=== PATIENT | female | born 1990 | race Caucasian/White ===

== ENCOUNTER 2016-08-18 18:27 | Emergency (ER) | payer MEDICAID ==
--- NOTE | 2016-08-18 19:01 | EDM.PDOC ---
ED HPI Behavioral Health - General Chief Complaint: Behavioral/Psych Stated Complaint: MEDICAL [facility] Time Seen by Provider: 08/18/16 18:49 Source: Reports: Patient, RN notes reviewed Exam Limitations: Reports: No limitations - History of Present Illness INITIAL COMMENTS - FREE TEXT/NARRATIVE: 26-year-old female presents emergency department today via EMS services for suicidal attempt with a drug he is taking 2 additional tablets of 25 mg of Toprol approximately 45 minutes ago. She has been displaying some cutting behavior on her left wrist admits that she wants to harm herself and would continue to do with overdose of medication - Related Data Allergies Allergy/AdvReac Type Severity Reaction Status Date / Time cat dander Allergy Anaphylactic Verified 08/18/16 18:37 Shock cyclobenzaprine HCl AdvReac Intermediate Nausea Verified 08/18/16 18:37 [From Flexeril] red dye AdvReac Intermediate Vomiting Verified 08/18/16 18:37 Home Medications: Home Meds Metoprolol Succinate [Toprol XL] 25 mg PO BID 06/03/15 [History] LORazepam 0.5 mg PO BID 08/31/15 [History] Albuterol [Ventolin HFA] 2 inh PO ASDIRECTED 03/14/16 [History] Mirtazapine [Mirtazapine] 22.5 mg PO DAILY 03/14/16 [History] lamoTRIgine [Lamotrigine] 50 mg PO BEDTIME 03/14/16 [History] Back Pain Score (Numeric/FACES): 8 Past Medical History Cardiovascular History: Reports: Arrhythmia Other Cardiovascular History: hr 280 bpm- cardioverted previously Respiratory History: Reports: Pneumonia, recurrent Genitourinary History: Reports: UTI, recurrent 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 febrile seizure as child Psychiatric History: Reports: Bipolar, Depression, Hallucinations, Panic attack , Psych Hospitalization(s), PTSD, Suicidal ideation (Last hospitalization one year ago), Other (see below) Other Psychiatric History: borderline personality disorder Endocrine/Metabolic History: Reports: Obesity/BMI 30+ Hematologic History: Reports: Anemia, B12 deficiency, Blood transfusion(s) Immunologic History: Reports: Other (see below) Other Immunologic History: prednisone injections Dermatologic History: Reports: Psoriasis - Infectious Disease History Infectious Disease History: Reports: Chicken pox - Past Surgical History HEENT Surgical History: Reports: Myringotomy w tube(s), Oral surgery Cardiovascular Surgical History: Reports: Vascular surgery Other Cardiovascular Surgeries/Procedures: sent to [facility] for cardiogram early this year unsure what did GI Surgical History: Reports: Cholecystectomy Other Female Surgeries/Procedures: ovary surgery Other Musculoskeletal Surgeries/Procedures:: prednisone epidural injections Social & Family History - Family History Family Medical History: Noncontributory Cardiac: Reports: High cholesterol, Hypertension Other GI Family History: Osmani suffers from microscopic colitis OBGYN: Reports: Dysfunctional uterine bleeding, Endometriosis Endocrine/Metabolic: Reports: Diabetes, type II Oncologic: Reports: Esophageal - Tobacco Use Smoking Status *Q: Current Every Day Smoker Years of Tobacco use: 18 Packs/Tins Daily: 0.5 Used Tobacco, but Quit: No Month Tobacco Last Used: 2 Second Hand Smoke Exposure: Yes - Caffeine Use Caffeine Use: Reports: Soda - Alcohol Use Days Per Week of Alcohol Use: 1 Number of Drinks Per Day: 3 Total Drinks Per Week: 3 - Recreational Drug Use Recreational Drug Use: Yes Drug Use in Last 12 Months: Yes Recreational Drug Type: Reports: Marijuana/Hashish Recreational Drug Use Frequency: Monthly - Living Situation & Occupation Living situation: Reports: single, with family (Lives in [facility] with her vcj-luuz-hen daughter.) Occupation: disabled ED ROS GENERAL - Review of Systems Review Of Systems: See Below Constitutional: Reports: no symptoms HEENT: Reports: No symptoms Respiratory: Reports: No Symptoms Cardiovascular: Reports: No symptoms GI/Abdominal: Reports: No symptoms : Reports: no symptoms Musculoskeletal: Reports: no symptoms Skin: Reports: no symptoms Neurological: Reports: No Symptoms Psychiatric: Reports: Anxiety, Depression, Suicidal ideation. Denies: Hallucinations, Homicidal ideation ED EXAM, BEHAVIORAL HEALTH - Physical Exam Exam: See Below Text/Narrative:: General: Female, not in any distress, tearful anxious, alert and oriented x3 HEENT: head is atraumatic normocephalic, eyes pupils equal round reactive to light, sclera clear no conjunctivitis appreciated. Ears tympanic membranes clear and marshall landmarks and light reflex are present bilaterally canals are clear. Nose no septal deviation, nares are clear, no blood present. Mouth mucosa is moist and pink no erythema or exudate noted in soft palate, tongue is midline uvula is midline, dentition is intact. Neck: Supple no thyromegaly no tracheal deviation. Nodes: Cervical nodes subclavicular nodes nontender no palpable lymphadenopathy noted. Lungs: clear to auscultation bilaterally with symmetrical respirations, no adventitious noise appreciated. CV: Regular rate and rhythm S1 and S2 appreciated no murmurs rubs or gallops noted. Abdomen: Soft, nontender, no palpable masses or organomegaly appreciated, no distention no guarding bowel sounds are present, . Neuro: Cranial nerves II through XII grossly intact Skin: Warm and dry, intact Extremities: No lower extremity edema appreciated, pedal pulse is +2. Orientated to person place and time, appropriately dressed, well groomed, memory to recent and remote events intact, tearful during the interview, speech is of adequate rate tone and volume, good fund of knowledge, language is appropriate, Mood and affect are depressed, no pressured thoughts, positive for suicidal ideation, denies homicidal ideation, no hallucinations visual or auditory, poor judgment, poor insight COURSE, BEHAVIORAL HEALTH COMP - Course Vital Signs: Last Vital Signs Temp 99.0 F 08/18/16 18:36 Pulse 68 08/18/16 21:21 Resp 18 08/18/16 21:21 BP 124/68 08/18/16 21:21 Pulse Ox 98 08/18/16 21:21 Orders, Labs, Meds: Active Orders 24 hr Category Date Time Status EKG Documentation Completion [RC] ASDIRECTED Care 08/18/16 18:56 Active CULTURE URINE [RM] Urgent Lab 08/18/16 21:45 Uncollected EKG 12 Lead [EK] Urgent Ther 08/18/16 18:55 Ordered Laboratory Tests 08/18/16 08/18/16 08/18/16 Range/Units 19:06 19:06 19:06 WBC 8.1 (4.5-11.0) K/uL RBC 4.76 (3.30-5.50) M/uL Hgb 14.0 (12.0-15.0) g/dL Hct 42.9 (36.0-48.0) % MCV 90 (80-98) fL MCH 29 (27-31) pg MCHC 33 (32-36) % Plt Count 198 (150-400) K/uL Neut % (Auto) 47 (36-66) % Lymph % (Auto) 42 (24-44) % [place]incon % (Auto) 7 H (2-6) % Eos % (Auto) 2 (2-4) % Baso % (Auto) 2 H (0-1) % Sodium 146 (140-148) mmol/L Potassium 4.4 (3.6-5.2) mmol/L Chloride 108 (100-108) mmol/L Carbon Dioxide 29 (21-32) mmol/L Anion Gap 8.8 (5.0-14.0) mmol/L BUN 7 (7-18) mg/dL Creatinine 0.8 (0.6-1.0) mg/dL Est Cr Clr Drug Dosing TNP Estimated GFR (MDRD) > 60 (>60) Glucose 90 (74-106) mg/dL Calcium 8.7 (8.5-10.1) mg/dL Total Bilirubin 0.4 (0.2-1.0) mg/dL AST 33 (15-37) U/L ALT 56 (12-78) U/L Alkaline Phosphatase 88 (46-116) U/L Total Protein 7.3 (6.4-8.2) g/dL Albumin 4.2 (3.4-5.0) g/dL Globulin 3.1 (2.3-3.5) g/dL Albumin/Globulin Ratio 1.4 (1.2-2.2) Urine Color Urine Appearance Urine pH (4.5-8.0) Ur Specific [place] (1.008-1.030) Urine Protein (NEGATIVE) mg/dL Urine Glucose (UA) (NEGATIVE) mg/dL Urine Ketones (NEGATIVE) mg/dL Urine Occult Blood (NEGATIVE) Urine Nitrite (NEGATIVE) Urine Bilirubin (NEGATIVE) Urine Urobilinogen (NORMAL) mg/dL Ur Leukocyte Esterase (NEGATIVE) Urine RBC (0-5) Urine WBC (0-5) Ur Epithelial Cells Amorphous Sediment Urine Bacteria Urine Mucus Urine Other Urine HCG, Qual Urine Opiates Screen (NEGATIVE) Ur Oxycodone Screen (NEGATIVE) Urine Methadone Screen (NEGATIVE) Ur Propoxyphene Screen (NEGATIVE) Ur Barbiturates Screen (NEGATIVE) Ur Tricyclics Screen (NEGATIVE) Ur Phencyclidine Scrn (NEGATIVE) Ur Amphetamine Screen (NEGATIVE) U Methamphetamines Scrn (NEGATIVE) Urine MDMA Screen (NEGATIVE) U Benzodiazepines Scrn (NEGATIVE) U Cocaine Metab Screen (NEGATIVE) U Marijuana (THC) Screen (NEGATIVE) Ethyl Alcohol < 3 mg/dL 08/18/16 08/18/16 08/18/16 Range/Units 19:24 19:24 19:24 WBC (4.5-11.0) K/uL RBC (3.30-5.50) M/uL Hgb (12.0-15.0) g/dL Hct (36.0-48.0) % MCV (80-98) fL MCH (27-31) pg MCHC (32-36) % Plt Count (150-400) K/uL Neut % (Auto) (36-66) % Lymph % (Auto) (24-44) % Rincon % (Auto) (2-6) % Eos % (Auto) (2-4) % Baso % (Auto) (0-1) % Sodium (140-148) mmol/L Potassium (3.6-5.2) mmol/L Chloride (100-108) mmol/L Carbon Dioxide (21-32) mmol/L Anion Gap (5.0-14.0) mmol/L BUN (7-18) mg/dL Creatinine (0.6-1.0) mg/dL Est Cr Clr Drug Dosing Estimated GFR (MDRD) (>60) Glucose (74-106) mg/dL Calcium (8.5-10.1) mg/dL Total Bilirubin (0.2-1.0) mg/dL AST (15-37) U/L ALT (12-78) U/L Alkaline Phosphatase (46-116) U/L Total Protein (6.4-8.2) g/dL Albumin (3.4-5.0) g/dL Globulin (2.3-3.5) g/dL Albumin/Globulin Ratio (1.2-2.2) Urine Color Yellow Urine Appearance Slightly cloudy Urine pH 6.0 (4.5-8.0) Ur Specific [place] 1.025 (1.008-1.030) Urine Protein Negative (NEGATIVE) mg/dL Urine Glucose (UA) Normal (NEGATIVE) mg/dL Urine Ketones Negative (NEGATIVE) mg/dL Urine Occult Blood Negative (NEGATIVE) Urine Nitrite Negative (NEGATIVE) Urine Bilirubin Negative (NEGATIVE) Urine Urobilinogen 1 (NORMAL) mg/dL Ur Leukocyte Esterase Small (NEGATIVE) Urine RBC 0-5 (0-5) Urine WBC 10-20 H (0-5) Ur Epithelial Cells Moderate Amorphous Sediment Not seen Urine Bacteria Many Urine Mucus Few Urine Other Urine HCG, Qual Negative Urine Opiates Screen Negative (NEGATIVE) Ur Oxycodone Screen Negative (NEGATIVE) Urine Methadone Screen Negative (NEGATIVE) Ur Propoxyphene Screen Negative (NEGATIVE) Ur Barbiturates Screen Negative (NEGATIVE) Ur Tricyclics Screen Negative (NEGATIVE) Ur Phencyclidine Scrn Negative (NEGATIVE) Ur Amphetamine Screen Negative (NEGATIVE) U Methamphetamines Scrn Negative (NEGATIVE) Urine MDMA Screen Negative (NEGATIVE) U Benzodiazepines Scrn Negative (NEGATIVE) U Cocaine Metab Screen Negative (NEGATIVE) U Marijuana (THC) Screen Positive H (NEGATIVE) Ethyl Alcohol mg/dL Departure - Departure Time of Disposition: 21:58 Disposition: DC/Tfer to Psych Hosp/Unit 65 Condition: fair Clinical Impression: Suicidal ideation Forms: ED Department Discharge - My Orders Last 24 Hours: My Active Orders 08/18/16 18:55 EKG 12 Lead [EK] Urgent 08/18/16 18:56 EKG Documentation Completion [RC] ASDIRECTED 08/18/16 21:45 CULTURE URINE [RM] Urgent - Assessment/Plan Last 24 Hours: My Active Orders 08/18/16 18:55 EKG 12 Lead [EK] Urgent 08/18/16 18:56 EKG Documentation Completion [RC] ASDIRECTED 08/18/16 21:45 CULTURE URINE [RM] Urgent Plan: Assessment Acuity = acute Site and laterality = suicidal ideation complicated patient with known history of bipolar and previous suicidal attempts Etiology = secondary to social situation with male friend Manifestations = none Location of injury = home Lab values = CBC, CMP unremarkable, urinalysis does have 10-20 WBCs consistent with pyuria however she is asymptomatic at this time cultures pending, urine drug screen positive for cannabis Plan Did have acceptance at [facility] and for response she will be transported via [facility] transport, Patient was in agreement with the plan all questions were answered. This note was dictated using [employer] voice recognition software please call with any questions.
[2016-08-18 23:16] VITALS: BP 121/73
[2016-08-18] MEDS ORDERED: Mirtazapine 15 MG Tab PO ONE (23:34)
[2016-08-18] MEDS ORDERED: lamoTRIgine 25 MG Tab PO ONE (23:35)
[2016-08-18] MEDS ORDERED: lamoTRIgine 100 MG Tab ONE (23:42)
== END 2016-08-19 00:13 ==
LOC: JP.ED 18:27
DX: R45.851 Suicidal ideations (principal); F32.9 Major depressive disorder, single episode, unspecified; F31.9 Bipolar disorder, unspecified; F41.0 Panic disorder [episodic paroxysmal anxiety]; F17.210 Nicotine dependence, cigarettes, uncomplicated; E66.9 Obesity, unspecified; Z68.30 Body mass index [BMI] 30.0-30.9, adult; Z90.49 Acquired absence of other specified parts of digestive tract; Z96.22 Myringotomy tube(s) status; Z98.890 Other specified postprocedural states; Z79.899 Other long term (current) drug therapy; Z88.8 Allergy status to other drugs, medicaments and biological substances; Z91.048 Other nonmedicinal substance allergy status
CPT/HCPCS: 36415; 80053; 80305; 81001; 81025; 85025; 87086; 93005; 99285; A9270; G0480

== ENCOUNTER 2018-07-25 22:38 | Emergency (ER) | payer MEDICAID ==
[2018-07-25 23:01] VITALS: BP 116/71
[2018-07-25] MEDS ORDERED: Ketorolac 60 MG/2 ML SDV IM ONE (23:17)
[2018-07-25] MEDS ORDERED: Baclofen 10 MG Tab PO ONE (23:17)
[2018-07-25] MEDS ORDERED: Acetaminophen/oxyCODONE 325-5 MG Tab PO ONE (23:18)
--- NOTE | 2018-07-25 23:26 | EDM.PDOC ---
ED HPI GENERAL MEDICAL PROBLEM - General Chief Complaint: Back Pain or Injury Stated Complaint: BACK AND LEG PAIN Time Seen by Provider: 07/25/18 23:20 Source of Information: Reports: Patient History Limitations: Reports: No Limitations - History of Present Illness INITIAL COMMENTS - FREE TEXT/NARRATIVE: pt arrived with pain in the left lower lumbar area, She has pain going down the back of the left leg to her toes. This is the worst radicular pain she has had. She reached a point that she could not stand and she could not get in the car tonight. She has not had a fall or recent injury. Onset: Other ( The pain did get alot worse today. ) Duration: Hour(s): Location: Reports: Back, Lower Extremity, Left Associated Symptoms: Reports: Other (pt definitely felt like he had weakness in her left leg. 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: Other (see below) Left Lower Back Pain Score (Numeric/FACES): 10 - Related Data Allergies Allergy/AdvReac Type Severity Reaction Status Date / Time cat dander Allergy Severe Anaphylactic Verified 07/25/18 23:01 Shock cyclobenzaprine HCl AdvReac Intermediate Nausea Verified 07/25/18 23:01 [From Flexeril] red dye AdvReac Intermediate Vomiting Verified 07/25/18 23:01 Home Meds: Home Meds Metoprolol Succinate [Toprol XL] 25 mg PO DAILY 06/03/15 [History] Albuterol [Ventolin HFA] 2 inh PO ASDIRECTED 03/14/16 [History] lamoTRIgine [Lamotrigine] 100 mg PO BEDTIME 03/14/16 [History] Ondansetron [Zofran ODT] 4 mg PO Q6H PRN 03/21/18 [History] Sertraline HCl 150 mg PO BEDTIME 03/21/18 [History] hydrOXYzine HCl [hydrOXYzine] 25 mg PO Q6HR PRN 03/21/18 [History] Cefdinir [Omnicef] 300 mg PO BID #8 cap 03/22/18 [Rx] Lactobacillus Acidophilus [Acidophilus Lactobacilli] 1 each PO BID #60 capsule 03/22/18 [Rx] clonazePAM [Klonopin] 1 mg PO BEDTIME PRN 03/22/18 [History] Omeprazole 40 mg PO DAILY 07/25/18 [History] Tolnaftate 1 dose TOP ASDIRECTED 07/25/18 [History] glipiZIDE [Glucotrol] 5 mg PO BID 07/25/18 [History] Past Medical History HEENT History: Reports: None Cardiovascular History: Reports: Other (See Below) Other Cardiovascular History: vascular tacycardia Respiratory History: Reports: Asthma, Pneumonia, Recurrent Gastrointestinal History: Reports: None Genitourinary History: Reports: UTI, Recurrent 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 febrile seizure as child - last seizure was at 14 y.o. Psychiatric History: Reports: Anxiety, Bipolar, Depression, Hallucinations, Panic Attack, Psych Hospitalization(s), PTSD, Suicide Attempt, Suicidal Ideation , Other (See Below) Other Psychiatric History: borderline personality disorder Endocrine/Metabolic History: Reports: Obesity/BMI 30+ Hematologic History: Reports: Anemia, B12 Deficiency, Blood Transfusion(s) Immunologic History: Reports: Other (See Below) Other Immunologic History: prednisone injections Dermatologic History: Reports: Psoriasis - Infectious Disease History Infectious Disease History: Reports: Chicken Pox - Past Surgical History HEENT Surgical History: Reports: Myringotomy w Tube(s), Oral Surgery Cardiovascular Surgical History: Reports: Vascular Surgery Other Cardiovascular Surgeries/Procedures: ablation's x 4 Respiratory Surgical History: Reports: None GI Surgical History: Reports: Cholecystectomy Female Surgical History: Reports: Other (See Below) Other Female Surgeries/Procedures: cyst removed from ovary Neurological Surgical History: Reports: None Other Neurological Surgeries/Procedures: pt is scheduled for a discectomy Musculoskeletal Surgical History: Reports: None Dermatological Surgical History: Reports: None Social & Family History - Family History Family Medical History: Noncontributory Cardiac: Reports: High Cholesterol, Hypertension Other GI Family History: Motehr suffers from microscopic colitis OBGYN: Reports: Dysfunctional uterine bleeding, Endometriosis Endocrine/Metabolic: Reports: Diabetes, type II Oncologic: Reports: Esophageal - Caffeine Use Caffeine Use: Reports: None - Living Situation & Occupation Living situation: Reports: Single, with Family Occupation: Disabled (lives with Boyfriend Eric, and her 8 year old daughter) ED ROS GENERAL - Review of Systems Review Of Systems: See Below Constitutional: Reports: No Symptoms HEENT: Reports: No Symptoms Respiratory: Reports: No Symptoms Cardiovascular: Reports: No Symptoms Endocrine: Reports: No Symptoms GI/Abdominal: Reports: No Symptoms : Reports: No Symptoms Musculoskeletal: Reports: Other (pain in the left low back and down the left leg. ) ED EXAM,LOWER BACK PAIN/INJURY - Physical Exam Exam: See Below Text/Narrative:: pt arrived with pain in the left lumbar area and pain down the left leg. She states she has pain going clear to her toes. Exam Limited By: No Limitations General Appearance: Alert, Anxious, Severe Distress Ears: Normal TMs Nose: Normal Inspection Throat/Mouth: Normal Inspection Head: Atraumatic Neck: Normal Inspection Respiratory/Chest: No Respiratory Distress Cardiovascular: Regular Rate, Rhythm GI/Abdominal: Soft, Non-Tender (Female) Exam: Deferred Rectal (Female) Exam: Deferred Back Exam: Normal Inspection Extremities: Other (severe pain with raising her left leg. ) Neurological: Alert, Oriented x 3, Other (pt has normal great toe strength. She has a positive straight leg raising sign. She is tender in her left lower lumbar area. ) Psychiatric: Anxious Course - Vital Signs Last Recorded V/S: Last Vital Signs Temp 36.7 C 07/25/18 22:55 Pulse 110 H 07/25/18 22:55 Resp 12 07/25/18 22:55 BP 116/71 07/25/18 22:55 Pulse Ox 94 L 07/25/18 22:55 - Orders/Labs/Meds Orders: Active Orders 24 hr Category Date Time Status CULTURE URINE [RM] Stat Lab 07/26/18 00:55 Ordered Labs: Laboratory Tests 07/25/18 Range/Units 23:23 Urine Color Yellow Urine Appearance Cloudy Urine pH 5.0 (4.5-8.0) Ur Specific [place] 1.020 (1.008-1.030) Urine Protein Trace (NEGATIVE) mg/dL Urine Glucose (UA) 250 H (NEGATIVE) mg/dL Urine Ketones Negative (NEGATIVE) mg/dL Urine Occult Blood Moderate (NEGATIVE) Urine Nitrite Positive H (NEGATIVE) Urine Bilirubin Negative (NEGATIVE) Urine Urobilinogen Normal (NORMAL) mg/dL Ur Leukocyte Esterase Large (NEGATIVE) Urine RBC 5-10 H (0-5) Urine WBC >100 H (0-5) Ur Epithelial Cells Moderate Amorphous Sediment Not seen Urine Bacteria Moderate Urine Mucus Not seen Urine Other Meds: Medications Discontinued Medications Generic Name Dose Route Start Last Admin Trade Name Barbara PRN Reason Stop Dose Admin Baclofen 10 mg 07/25/18 23:17 07/25/18 23:30 Lioresal PO 07/25/18 23:18 10 mg ONETIME ONE Administration Ketorolac Tromethamine 60 mg 07/25/18 23:17 07/25/18 23:29 Toradol IM 07/25/18 23:18 60 mg ONETIME ONE Administration Oxycodone/Acetaminophen 1 tab 07/25/18 23:18 07/25/18 23:31 Percocet 325-5 Mg PO 07/25/18 23:19 1 tab ONETIME ONE Administration - Re-Assessments/Exams Free Text/Narrative Re-Assessment/Exam: 07/25/18 23:28 pt had a MRI12/29 which showed a new disc at L5S1 which was extruded downward on the left. She was given torodol 60mg im baclofen 10ng and percocet. She has gotten quite good relief of her pain. 07/26/18 00:30 07/26/18 01:00 urine appears very infected which may be making the pain worse. Departure - Departure Time of Disposition: 01:00 Disposition: Home, Self-Care 01 Condition: Fair Clinical Impression: Sciatica, Lumbar disc disease UTI (urinary tract infection) Qualifiers: Urinary tract infection type: acute cystitis Hematuria presence: with hematuria Qualified Code(s): N30.01 - Acute cystitis with hematuria - Discharge Information Referrals: PCP,None [Primary Care Provider] - Forms: ED Department Discharge Care Plan Goals: heat or ice to the left buttock area, follow up with Lita Lorenzo regarding the back and leg pain, cipro 500mg bid, --10 days, baclofen 10 mg bid, naprosyn 500mg bid for the next week, , percocet 5/32 q6h prn for pain #10 - My Orders Last 24 Hours: My Active Orders 07/26/18 00:55 CULTURE URINE [RM] Stat - Assessment/Plan Last 24 Hours: My Active Orders 07/26/18 00:55 CULTURE URINE [RM] Stat
== END 2018-07-26 01:28 | disposition home or self-care (01) ==
LOC: JP.ED 22:38
DX: N30.01 Acute cystitis with hematuria (principal); M51.9 Unspecified thoracic, thoracolumbar and lumbosacral intervertebral disc disorder; M54.32 Sciatica, left side; J45.909 Unspecified asthma, uncomplicated; Z88.8 Allergy status to other drugs, medicaments and biological substances; Z79.899 Other long term (current) drug therapy
CPT/HCPCS: 81001; 87086; 96372; 99283; A9270-GY; J1885

== ENCOUNTER 2018-10-22 11:20 | Emergency (ER) | payer MEDICAID ==
[2018-10-22] MEDS ORDERED: Adenosine 6 MG/2 ML SDV ONE (11:43)
[2018-10-22] MEDS ORDERED: Amiodarone 150 MG/3 ML SDV ONE (11:51)
[2018-10-22] MEDS ORDERED: Ondansetron 4 MG/2 ML SDV ONE (12:03)
[2018-10-22] MEDS ORDERED: Amiodarone 150 MG/3 ML SDV IVPUSH ONE (12:07)
[2018-10-22] MEDS ORDERED: Adenosine 6 MG/2 ML SDV IVPUSH ONE ×2 (12:07)
[2018-10-22] MEDS ORDERED: Ondansetron 4 MG/2 ML SDV IVPUSH ONE (12:08)
[2018-10-22] MEDS ORDERED: Sodium Chloride 0.9% 500 ML IV ONE (12:28)
--- NOTE | 2018-10-22 12:29 | EDM.PDOC ---
ED HPI GENERAL MEDICAL PROBLEM - General Chief Complaint: Cardiovascular Problem Stated Complaint: VOMITING FOR 3 DAYS, HIGH HEART RATE Time Seen by Provider: 10/22/18 11:25 Source of Information: Reports: Patient History Limitations: Reports: No Limitations - History of Present Illness INITIAL COMMENTS - FREE TEXT/NARRATIVE: On set rapid heart rate, vomiting and general malaise 6 hours prior to admission. Has hx of ablations X4 in past. No chest pain or SOB. Onset: Today Onset Date: 10/22/18 Onset Time: 06:00 Duration: Hour(s): Improves with: Reports: None Worsens with: Reports: None Associated Symptoms: Reports: Nausea/Vomiting, Weakness - Related Data Allergies Allergy/AdvReac Type Severity Reaction Status Date / Time cat dander Allergy Severe Anaphylactic Verified 07/25/18 23:01 Shock cyclobenzaprine HCl AdvReac Intermediate Nausea Verified 07/25/18 23:01 [From Flexeril] red dye AdvReac Intermediate Vomiting Verified 07/25/18 23:01 Home Meds: Home Meds Metoprolol Succinate [Toprol XL] 25 mg PO DAILY 06/03/15 [History] Albuterol [Ventolin HFA] 2 inh PO ASDIRECTED 03/14/16 [History] lamoTRIgine [Lamotrigine] 100 mg PO BEDTIME 03/14/16 [History] Ondansetron [Zofran ODT] 4 mg PO Q6H PRN 03/21/18 [History] Sertraline HCl 150 mg PO BEDTIME 03/21/18 [History] Lactobacillus Acidophilus [Acidophilus Lactobacilli] 1 each PO BID #60 capsule 03/22/18 [Rx] clonazePAM [Klonopin] 1 mg PO BEDTIME PRN 03/22/18 [History] Omeprazole 40 mg PO DAILY 07/25/18 [History] Tolnaftate 1 dose TOP ASDIRECTED 07/25/18 [History] glipiZIDE [Glucotrol] 5 mg PO BID 07/25/18 [History] Past Medical History HEENT History: Reports: None Cardiovascular History: Reports: Other (See Below) Other Cardiovascular History: vascular tacycardia Respiratory History: Reports: Asthma, Pneumonia, Recurrent Gastrointestinal History: Reports: None Genitourinary History: Reports: UTI, Recurrent LAB ENGINEER History: Reports: Endometriosis, Polycystic Ovaries, Other LAB ENGINEER History: Mirena IUD in place Musculoskeletal History: Reports: Back Pain, Chronic, Fracture Neurological History: Reports: Seizure Other Neuro History: epidurals for back pain. febrile seizure as child - last seizure was at 14 y.o. Psychiatric History: Reports: Anxiety, Bipolar, Depression, Hallucinations, Panic Attack, Psych Hospitalization(s), PTSD, Suicide Attempt, Suicidal Ideation , Other (See Below) Other Psychiatric History: borderline personality disorder Endocrine/Metabolic History: Reports: Obesity/BMI 30+ Hematologic History: Reports: Anemia, B12 Deficiency, Blood Transfusion(s) Immunologic History: Reports: Other (See Below) Other Immunologic History: prednisone injections Dermatologic History: Reports: Psoriasis - Infectious Disease History Infectious Disease History: Reports: Chicken Pox - Past Surgical History HEENT Surgical History: Reports: Myringotomy w Tube(s), Oral Surgery Cardiovascular Surgical History: Reports: Vascular Surgery Other Cardiovascular Surgeries/Procedures: ablation's x 4 Respiratory Surgical History: Reports: None GI Surgical History: Reports: Cholecystectomy Female Surgical History: Reports: Other (See Below) Other Female Surgeries/Procedures: cyst removed from ovary Neurological Surgical History: Reports: None Other Neurological Surgeries/Procedures: pt is scheduled for a discectomy Musculoskeletal Surgical History: Reports: None Dermatological Surgical History: Reports: None Social & Family History - Family History Family Medical History: Noncontributory Cardiac: Reports: High Cholesterol, Hypertension Other GI Family History: Osmani suffers from microscopic colitis OBGYN: Reports: Dysfunctional uterine bleeding, Endometriosis Endocrine/Metabolic: Reports: Diabetes, type II Oncologic: Reports: Esophageal - Tobacco Use Smoking Status *Q: Light Tobacco Smoker Years of Tobacco use: 10 Packs/Tins Daily: 0.2 - Caffeine Use Caffeine Use: Reports: None - Recreational Drug Use Recreational Drug Use: No - Living Situation & Occupation Living situation: Reports: Single, with Family Occupation: Disabled (lives with Boyfriend Eric, and her 8 year old daughter) ED ROS GENERAL - Review of Systems Review Of Systems: See Below Constitutional: Reports: No Symptoms HEENT: Reports: No Symptoms Respiratory: Reports: Shortness of Breath Cardiovascular: Reports: Palpitations, Other (r) Endocrine: Reports: High Glucose GI/Abdominal: Reports: Vomiting : Reports: No Symptoms Musculoskeletal: Reports: No Symptoms Skin: Reports: No Symptoms Neurological: Reports: No Symptoms Psychiatric: Reports: Anxiety Hematologic/Lymphatic: Reports: No Symptoms Immunologic: Reports: No Symptoms ED EXAM, GENERAL - Physical Exam Exam: See Below Exam Limited By: No Limitations General Appearance: Alert, Anxious, Mild Distress Eye Exam: Bilateral Eye: Normal Inspection Ears: Normal TMs Ear Exam: Bilateral Ear: TM normal Nose: Normal Inspection Throat/Mouth: Normal Inspection Head: Atraumatic Neck: Normal Inspection Respiratory/Chest: No Respiratory Distress Cardiovascular: Tachycardia GI/Abdominal: Normal Bowel Sounds (Female) Exam: Deferred Rectal (Female) Exam: Deferred Back Exam: Normal Inspection Extremities: Normal Inspection, No Pedal Edema Neurological: Alert, Oriented, Normal Cognition Psychiatric: Anxious Skin Exam: Warm Lymphatic: No Adenopathy Course - Vital Signs Last Recorded V/S: Last Vital Signs Temp 36.4 C 10/22/18 12:02 Pulse 209 H 10/22/18 12:43 Resp 16 10/22/18 12:43 BP 131/76 10/22/18 12:43 Pulse Ox 92 L 10/22/18 12:43 - Orders/Labs/Meds Orders: Active Orders 24 hr Category Date Time Status POC Glucose [Blood Glucose Check, Bedside] [RC] STAT Care 10/22/18 12:06 Active Amiodarone [Cordarone] 450 mg Med 10/22/18 12:45 Active Dextrose 5% in Water 241 ml IV ASDIRECTED Sodium Chloride 0.9% [Normal Saline] 500 ml Med 10/22/18 12:28 Active IV .BOLUS Medication Orders Sodium Chloride (Normal Saline) 500 mls @ 999 mls/hr IV .BOLUS ONE Stop: 10/22/18 12:58 Last Admin: 10/22/18 11:40 Dose: 999 mls/hr Amiodarone HCl 450 mg/ (Dextrose/Water) 250 mls @ 33 mls/hr IV ASDIRECTED [facility]; Protocol Labs: Laboratory Tests 10/22/18 10/22/18 10/22/18 Range/Units 11:30 11:30 11:30 WBC 11.3 H (4.5-11.0) K/uL RBC 5.44 (3.30-5.50) M/uL Hgb 16.2 H D (12.0-15.0) g/dL Hct 50.5 H (36.0-48.0) % MCV 93 (80-98) fL MCH 30 (27-31) pg MCHC 32 (32-36) % Plt Count 297 (150-400) K/uL Sodium 138 L (140-148) mmol/L Potassium 5.0 (3.6-5.2) mmol/L Chloride 102 (100-108) mmol/L Carbon Dioxide 22 (21-32) mmol/L Anion Gap 19.0 H (5.0-14.0) mmol/L BUN 12 (7-18) mg/dL Creatinine 1.1 H (0.6-1.0) mg/dL Est Cr Clr Drug Dosing 67.29 mL/min Estimated GFR (MDRD) 58 L (>60) Glucose 236 H (74-106) mg/dL Calcium 9.8 D (8.5-10.1) mg/dL Troponin I 0.251 H* (0.000-0.056) ng/mL Meds: Medications Generic Name Dose Route Start Last Admin Trade Name Freq PRN Reason Stop Dose Admin Sodium Chloride 500 mls @ 999 mls/hr 10/22/18 12:28 10/22/18 11:40 Normal Saline IV 10/22/18 12:58 999 mls/hr .BOLUS ONE Administration Amiodarone HCl 450 mg/ 250 mls @ 33 mls/hr 10/22/18 12:45 Dextrose/Water IV ASDIRECTED [facility] Protocol Discontinued Medications Generic Name Dose Route Start Last Admin Trade Name Freq PRN Reason Stop Dose Admin Adenosine Confirm 10/22/18 11:43 10/22/18 12:29 Adenocard Administered 10/22/18 11:44 Not Given Dose 18 mg .ROUTE .STK-MED ONE Adenosine 6 mg 10/22/18 12:07 10/22/18 11:45 Adenocard IVPUSH 10/22/18 12:08 6 mg NOW ONE Administration Adenosine 12 mg 10/22/18 12:07 10/22/18 11:47 Adenocard IVPUSH 10/22/18 12:08 12 mg NOW ONE Administration Amiodarone HCl Confirm 10/22/18 11:51 10/22/18 12:29 Cordarone Administered 10/22/18 11:52 Not Given Dose 300 mg .ROUTE .STK-MED ONE Amiodarone HCl 300 mg 10/22/18 12:07 10/22/18 11:57 Cordarone IVPUSH 10/22/18 12:08 300 mg ONETIME ONE Administration Ondansetron HCl Confirm 10/22/18 12:03 10/22/18 12:29 Zofran Administered 10/22/18 12:04 Not Given Dose 4 mg .ROUTE .STK-MED ONE Ondansetron HCl 4 mg 10/22/18 12:08 10/22/18 12:04 Zofran IVPUSH 10/22/18 12:09 4 mg ONETIME ONE Administration Departure - Departure Time of Disposition: 13:00 Disposition: DC/Tfer to Acute Hospital 02 Reason for Transfer *Q: Other (cardioversion) Condition: Fair Clinical Impression: Paroxysmal supraventricular tachycardia Referrals: Ifrah Lorenzo PA [Primary Care Provider] - Forms: ED Department Discharge - My Orders Last 24 Hours: My Active Orders 10/22/18 12:06 POC Glucose [Blood Glucose Check, Bedside] [RC] STAT 10/22/18 12:28 Sodium Chloride 0.9% [Normal Saline] 500 ml IV .BOLUS 10/22/18 12:45 Amiodarone [Cordarone] 450 mg Dextrose 5% in Water 241 ml IV ASDIRECTED - Assessment/Plan Last 24 Hours: My Active Orders 10/22/18 12:06 POC Glucose [Blood Glucose Check, Bedside] [RC] STAT 10/22/18 12:28 Sodium Chloride 0.9% [Normal Saline] 500 ml IV .BOLUS 10/22/18 12:45 Amiodarone [Cordarone] 450 mg Dextrose 5% in Water 241 ml IV ASDIRECTED
[2018-10-22 12:44] VITALS: BP 131/76; PULSE 209
[2018-10-22] MEDS ORDERED: LORazepam 2 MG/ML SDV ONE (13:05)
[2018-10-22] MEDS ORDERED: LORazepam 2 MG/ML SDV IVPUSH ONE (13:07)
== END 2018-10-22 13:20 ==
LOC: JP.ED 11:20
DX: I47.1 Supraventricular tachycardia (principal); F17.210 Nicotine dependence, cigarettes, uncomplicated; J45.909 Unspecified asthma, uncomplicated; F41.9 Anxiety disorder, unspecified; F31.9 Bipolar disorder, unspecified; Z91.048 Other nonmedicinal substance allergy status; Z91.041 Radiographic dye allergy status; Z88.8 Allergy status to other drugs, medicaments and biological substances; Z79.899 Other long term (current) drug therapy; E66.9 Obesity, unspecified; Z68.41 Body mass index [BMI] 40.0-44.9, adult
CPT/HCPCS: 36415; 80048; 84484; 85027; 96361; 96365; 96375; 96376; 99285; J0153; J0282; J2060; J2405; J7040; J7060; 93005

== ENCOUNTER 2019-01-22 17:03 | Emergency (ER) | payer MEDICAID ==
[2019-01-22 17:14] VITALS: BP 159/96; PULSE 84
[2019-01-22] MEDS ORDERED: Ondansetron 4 MG/2 ML SDV IVPUSH ONE (17:38)
[2019-01-22] MEDS ORDERED: Sodium Chloride 0.9% 1,000 ML IV SCH (17:45)
[2019-01-22] MEDS ORDERED: Acetaminophen 500 MG Tab PO ONE (18:27)
[2019-01-22] MEDS ORDERED: Metoclopramide 10 MG/2 ML SDV IVPUSH ONE (18:43)
--- NOTE | 2019-01-22 18:48 | EDM.PDOC ---
ED HPI GENERAL MEDICAL PROBLEM - General Chief Complaint: Gastrointestinal Problem Stated Complaint: VOMITING,BLEEDING POST SURGERY Time Seen by Provider: 01/22/19 17:36 Source of Information: Reports: Patient History Limitations: Reports: No Limitations - History of Present Illness INITIAL COMMENTS - FREE TEXT/NARRATIVE: 28 yo female presents with nausea and vomiting since being discharged. She also has diarrhea but this is not new for her. When she wipes she has pink on the tissue. - Related Data Allergies Allergy/AdvReac Type Severity Reaction Status Date / Time cat dander Allergy Severe Anaphylactic Verified 01/22/19 17:17 Shock cyclobenzaprine HCl AdvReac Intermediate Nausea Verified 01/22/19 17:17 [From Flexeril] red dye AdvReac Intermediate Vomiting Verified 01/22/19 17:17 Home Meds: Home Meds Metoprolol Succinate [Toprol XL] 25 mg PO DAILY 06/03/15 [History] Albuterol [Ventolin HFA] 2 inh PO ASDIRECTED 03/14/16 [History] lamoTRIgine [Lamotrigine] 100 mg PO BEDTIME 03/14/16 [History] Sertraline HCl 150 mg PO BEDTIME 03/21/18 [History] clonazePAM [Klonopin] 1 mg PO BEDTIME PRN 03/22/18 [History] glipiZIDE [Glucotrol] 5 mg PO BID 07/25/18 [History] Past Medical History HEENT History: Reports: None Cardiovascular History: Reports: Other (See Below) Other Cardiovascular History: vascular tacycardia Respiratory History: Reports: Asthma, Pneumonia, Recurrent Gastrointestinal History: Reports: None Genitourinary History: Reports: UTI, Recurrent 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 febrile seizure as child - last seizure was at 14 y.o. Psychiatric History: Reports: Anxiety, Bipolar, Depression, Hallucinations, Panic Attack, Psych Hospitalization(s), PTSD, Suicide Attempt, Suicidal Ideation , Other (See Below) Other Psychiatric History: borderline personality disorder Endocrine/Metabolic History: Reports: Obesity/BMI 30+ Hematologic History: Reports: Anemia, B12 Deficiency, Blood Transfusion(s) Immunologic History: Reports: Other (See Below) Other Immunologic History: prednisone injections Dermatologic History: Reports: Psoriasis - Infectious Disease History Infectious Disease History: Reports: Chicken Pox - Past Surgical History HEENT Surgical History: Reports: Myringotomy w Tube(s), Oral Surgery Cardiovascular Surgical History: Reports: Vascular Surgery Other Cardiovascular Surgeries/Procedures: ablation's x 4 Respiratory Surgical History: Reports: None GI Surgical History: Reports: Cholecystectomy Female Surgical History: Reports: Other (See Below) Other Female Surgeries/Procedures: cyst removed from ovary Neurological Surgical History: Reports: None Other Neurological Surgeries/Procedures: pt is scheduled for a discectomy Musculoskeletal Surgical History: Reports: None Dermatological Surgical History: Reports: None Social & Family History - Family History Family Medical History: Noncontributory Cardiac: Reports: High Cholesterol, Hypertension Other GI Family History: Osmani suffers from microscopic colitis OBGYN: Reports: Dysfunctional uterine bleeding, Endometriosis Endocrine/Metabolic: Reports: Diabetes, type II Oncologic: Reports: Esophageal - Tobacco Use Smoking Status *Q: Never Smoker - Caffeine Use Caffeine Use: Reports: None - Living Situation & Occupation Living situation: Reports: Single, with Family Occupation: Disabled (lives with Boyfriend Eric, and her 8 year old daughter) ED ROS GENERAL - Review of Systems Review Of Systems: See Below Constitutional: Denies: Fever, Chills, Fatigue Respiratory: Denies: Shortness of Breath, Wheezing Cardiovascular: Denies: Chest Pain ED EXAM, GI/ABD - Physical Exam Exam: See Below Exam Limited By: No Limitations General Appearance: Alert, WD/WN, No Apparent Distress Head: Atraumatic, Normocephalic Neck: Normal Inspection, Supple, Non-Tender, Full Range of Motion Respiratory/Chest: No Respiratory Distress, Lungs Clear, Normal Breath Sounds, No Accessory Muscle Use, Chest Non-Tender. No: Crackles, Rhonchi, Wheezing Cardiovascular: Normal Peripheral Pulses, Regular Rate, Rhythm, No Edema, No Gallop, No Murmur, No Rub GI/Abdominal Exam: Soft, Tender (mild LLQ) Neurological: Alert, Oriented Psychiatric: Normal Affect, Normal Mood Skin Exam: Warm, Dry, Intact, Normal Color, No Rash Course - Vital Signs Last Recorded V/S: Last Vital Signs Temp 36.2 C 01/22/19 17:24 Pulse 84 01/22/19 17:24 Resp 18 01/22/19 17:24 BP 159/96 H 01/22/19 17:24 Pulse Ox 93 L 01/22/19 17:24 - Orders/Labs/Meds Orders: Active Orders 24 hr Category Date Time Status EKG Documentation Completion [RC] ASDIRECTED Care 01/22/19 17:36 Active CULTURE URINE [RM] Stat Lab 01/22/19 19:54 Ordered Sodium Chloride 0.9% [Normal Saline] 1,000 ml Med 01/22/19 17:45 Active IV ASDIRECTED EKG 12 Lead [EK] Routine Ther 01/22/19 17:36 Ordered Medication Orders Sodium Chloride (Normal Saline) 1,000 mls @ 500 mls/hr IV ASDIRECTED MINOR Last Admin: 01/22/19 18:09 Dose: 500 mls/hr Labs: Laboratory Tests 01/22/19 01/22/19 01/22/19 Range/Units 17:36 17:36 19:41 WBC 6.2 (4.5-11.0) K/uL RBC 4.39 (3.30-5.50) M/uL Hgb 13.1 D (12.0-15.0) g/dL Hct 41.0 (36.0-48.0) % MCV 93 (80-98) fL MCH 30 (27-31) pg MCHC 32 (32-36) % Plt Count 222 (150-400) K/uL Neut % (Auto) 43 (36-66) % Lymph % (Auto) 43 (24-44) % Rooks % (Auto) 9 H (2-6) % Eos % (Auto) 4 (2-4) % Baso % (Auto) 1 (0-1) % Sodium 145 (140-148) mmol/L Potassium 4.7 (3.6-5.2) mmol/L Chloride 107 (100-108) mmol/L Carbon Dioxide 28 (21-32) mmol/L Anion Gap 10.2 (5.0-14.0) mmol/L BUN 4 L D (7-18) mg/dL Creatinine 0.7 (0.6-1.0) mg/dL Est Cr Clr Drug Dosing 105.74 mL/min Estimated GFR (MDRD) > 60 (>60) Glucose 141 H (74-106) mg/dL Calcium 9.4 (8.5-10.1) mg/dL Total Bilirubin 0.6 (0.2-1.0) mg/dL AST 41 H (15-37) U/L ALT 52 (12-78) U/L Alkaline Phosphatase 119 H (46-116) U/L Total Protein 7.0 (6.4-8.2) g/dL Albumin 3.5 (3.4-5.0) g/dL Globulin 3.5 (2.3-3.5) g/dL Albumin/Globulin Ratio 1.0 L (1.2-2.2) Urine Color Yellow (YELLOW) Urine Appearance Cloudy A (CLEAR) Urine pH 7.5 (5.0-8.0) Ur Specific [place] 1.025 (1.008-1.030) Urine Protein 30 H (NEGATIVE) mg/dL Urine Glucose (UA) Negative (NEGATIVE) mg/dL Urine Ketones Negative (NEGATIVE) mg/dL Urine Occult Blood Large H (NEGATIVE) Urine Nitrite Negative (NEGATIVE) Urine Bilirubin Negative (NEGATIVE) Urine Urobilinogen 1.0 (0.2-1.0) EU/dL Ur Leukocyte Esterase Small H (NEGATIVE) Urine RBC 10-20 H (0-5) Urine WBC 50-75 H (0-5) Ur Epithelial Cells Moderate Amorphous Sediment Not seen Urine Bacteria Many Urine Mucus Few Meds: Medications Generic Name Dose Route Start Last Admin Trade Name Freq PRN Reason Stop Dose Admin Sodium Chloride 1,000 mls @ 500 mls/hr 01/22/19 17:45 01/22/19 18:09 Normal Saline IV 500 mls/hr ASDIRECTED [facility] Administration Discontinued Medications Generic Name Dose Route Start Last Admin Trade Name Freq PRN Reason Stop Dose Admin Acetaminophen 1,000 mg 01/22/19 18:27 01/22/19 18:34 Tylenol Extra Strength PO 01/22/19 18:28 1,000 mg ONETIME ONE Administration Metoclopramide HCl 5 mg 01/22/19 18:43 01/22/19 18:51 Reglan IVPUSH 01/22/19 18:44 5 mg ONETIME ONE Administration Ondansetron HCl 4 mg 01/22/19 17:38 01/22/19 18:09 Zofran IVPUSH 01/22/19 17:39 4 mg ONETIME ONE Administration - Re-Assessments/Exams Free Text/Narrative Re-Assessment/Exam: 01/22/19 19:58 nausea resolved with medications and fluids. UA indicative of UTI will start antibiotics as we wait fro culture results Departure - Departure Time of Disposition: 19:59 Disposition: Home, Self-Care 01 Condition: Good Clinical Impression: UTI, Urinary tract infectious disease Nausea & vomiting Qualifiers: Vomiting type: unspecified Vomiting Intractability: non-intractable Qualified Code(s): R11.2 - Nausea with vomiting, unspecified - Discharge Information *PRESCRIPTION DRUG MONITORING PROGRAM REVIEWED*: Not Applicable *COPY OF PRESCRIPTION DRUG MONITORING REPORT IN PATIENT ROSET[place]: Not Applicable Instructions: Nausea, Adult, [id number] Referrals: Ifrah Lorenzo PA [Primary Care Provider] - Forms: ED Department Discharge Additional Instructions: Macrobid 100 mg twice daily for 7 days increase fluid intake with goal of 2 liters per day rest - My Orders Last 24 Hours: My Active Orders 01/22/19 17:36 EKG Documentation Completion [RC] ASDIRECTED EKG 12 Lead [EK] Routine 01/22/19 17:45 Sodium Chloride 0.9% [Normal Saline] 1,000 ml IV ASDIRECTED 01/22/19 19:54 CULTURE URINE [RM] Stat - Assessment/Plan Last 24 Hours: My Active Orders 01/22/19 17:36 EKG Documentation Completion [RC] ASDIRECTED EKG 12 Lead [EK] Routine 01/22/19 17:45 Sodium Chloride 0.9% [Normal Saline] 1,000 ml IV ASDIRECTED 01/22/19 19:54 CULTURE URINE [RM] Stat
== END 2019-01-22 20:41 | disposition home or self-care (01) ==
LOC: JP.ED 17:03
DX: N39.0 Urinary tract infection, site not specified (principal); R11.2 Nausea with vomiting, unspecified; J45.909 Unspecified asthma, uncomplicated; E66.9 Obesity, unspecified; F41.9 Anxiety disorder, unspecified; F32.9 Major depressive disorder, single episode, unspecified; Z68.41 Body mass index [BMI] 40.0-44.9, adult; Z88.8 Allergy status to other drugs, medicaments and biological substances; Z91.048 Other nonmedicinal substance allergy status
CPT/HCPCS: 36415; 80053; 81001; 85025; 87086; 93005; 96361; 96374; 96375; 99284; A9270; J2405; J2765; J7030; 87088; 87186

== ENCOUNTER 2019-09-10 08:46 | Emergency (ER) | payer MEDICAID ==
[2019-09-10 09:13] VITALS: BP 126/85; PULSE 120
[2019-09-10] MEDS ORDERED: Lactated Ringers 1,000 ML IV ONE (09:21)
[2019-09-10] MEDS ORDERED: Ondansetron 4 MG Tab.DIS PO ONE (09:22)
--- NOTE | 2019-09-10 09:33 | EDM.PDOC ---
ED HPI GENERAL MEDICAL PROBLEM - General Chief Complaint: Gastrointestinal Problem Stated Complaint: VOMITING Time Seen by Provider: 09/10/19 09:15 Source of Information: Reports: Patient, Old Records, RN History Limitations: Reports: No Limitations - History of Present Illness INITIAL COMMENTS - FREE TEXT/NARRATIVE: 29 yo female with AODM presents with nausea and vomiting since about 7 pm last evening. No fever or bloody stool/emesis. No known exposures. Has not been able to take any of her medications. No respiratory sx's. Onset: Gradual Onset Date: 09/09/19 Duration: Hour(s): (14+), Waxing/Waning Location: Reports: Abdomen Quality: Reports: Other (no pain) Severity: Moderate (severity of sx's) Improves with: Reports: None Worsens with: Reports: Other (unknown) Context: Reports: Other (see HPI) Associated Symptoms: Reports: Malaise, Nausea/Vomiting. Denies: Diaphoresis, Fever/Chills, Rash, Shortness of Breath Treatments DENTURE WAXER: Reports: Other (see below) (none) - Related Data Allergies Allergy/AdvReac Type Severity Reaction Status Date / Time cat dander Allergy Severe Anaphylactic Verified 09/10/19 08:59 Shock cyclobenzaprine HCl AdvReac Intermediate Nausea Verified 09/10/19 08:59 [From Flexeril] red dye AdvReac Intermediate Vomiting Verified 09/10/19 08:59 Home Meds: Home Meds Metoprolol Succinate [Toprol XL] 25 mg PO DAILY 06/03/15 [History] Albuterol [Ventolin HFA] 2 inh PO ASDIRECTED 03/14/16 [History] Sertraline HCl 150 mg PO BEDTIME 03/21/18 [History] clonazePAM [Klonopin] 1 mg PO BEDTIME PRN 03/22/18 [History] Liraglutide [Victoza] 1.8 ml SQ DAILY 09/10/19 [History] Ondansetron [Zofran ODT] 4 mg PO Q6H PRN #7 tab.dis 09/10/19 [Rx] Past Medical History HEENT History: Reports: None Cardiovascular History: Reports: Other (See Below) Other Cardiovascular History: vascular tacycardia Respiratory History: Reports: Asthma, Pneumonia, Recurrent Gastrointestinal History: Reports: None, Cholelithiasis Genitourinary History: Reports: UTI, Recurrent CHANNEL TURNER History: Reports: Endometriosis, Polycystic Ovaries, Other CHANNEL TURNER History: Mirena IUD in place Musculoskeletal History: Reports: Back Pain, Chronic, Fracture Neurological History: Reports: Seizure Other Neuro History: epidurals for back pain. febrile seizure as child - last seizure was at 14 y.o. Psychiatric History: Reports: Anxiety, Bipolar, Depression, Hallucinations, Panic Attack, Psych Hospitalization(s), PTSD, Suicide Attempt, Suicidal Ideation , Other (See Below) Other Psychiatric History: borderline personality disorder Endocrine/Metabolic History: Reports: Diabetes, Type II, Obesity/BMI 30+ Hematologic History: Reports: Anemia, B12 Deficiency, Blood Transfusion(s) Immunologic History: Reports: Other (See Below) Other Immunologic History: prednisone injections Dermatologic History: Reports: Psoriasis - Infectious Disease History Infectious Disease History: Reports: Chicken Pox - Past Surgical History HEENT Surgical History: Reports: Myringotomy w Tube(s), Oral Surgery Cardiovascular Surgical History: Reports: Vascular Surgery Other Cardiovascular Surgeries/Procedures: ablation's x 4 Respiratory Surgical History: Reports: None GI Surgical History: Reports: Cholecystectomy Female Surgical History: Reports: Other (See Below) Other Female Surgeries/Procedures: cyst removed from ovary Neurological Surgical History: Reports: None Other Neurological Surgeries/Procedures: pt is scheduled for a discectomy Musculoskeletal Surgical History: Reports: None Dermatological Surgical History: Reports: None Social & Family History - Family History Family Medical History: Noncontributory Cardiac: Reports: High Cholesterol, Hypertension Other GI Family History: Johnathanr suffers from microscopic colitis OBGYN: Reports: Dysfunctional uterine bleeding, Endometriosis Endocrine/Metabolic: Reports: Diabetes, type II Oncologic: Reports: Esophageal - Tobacco Use Smoking Status *Q: Current Every Day Smoker Years of Tobacco use: 15 Packs/Tins Daily: 0.2 Used Tobacco, but Quit: No Second Hand Smoke Exposure: No - Caffeine Use Caffeine Use: Reports: None - Recreational Drug Use Recreational Drug Use: No - Living Situation & Occupation Living situation: Reports: Single, with Family Occupation: Disabled (lives with Boyfriend Eric, and her 8 year old daughter) ED ROS GENERAL - Review of Systems Review Of Systems: See Below Constitutional: Reports: No Symptoms HEENT: Reports: No Symptoms Respiratory: Reports: No Symptoms Cardiovascular: Reports: No Symptoms Endocrine: Reports: No Symptoms GI/Abdominal: Reports: Diarrhea, Nausea, Vomiting. Denies: Abdominal Pain, Black Stool, Bloody Stool, Constipation, Hematemesis, Hematochezia : Reports: No Symptoms Musculoskeletal: Reports: No Symptoms Skin: Reports: No Symptoms Neurological: Reports: No Symptoms Psychiatric: Reports: No Symptoms ED EXAM, GI/ABD - Physical Exam Exam: See Below Exam Limited By: No Limitations General Appearance: Alert, WD/WN, No Apparent Distress, Obese Eyes: Bilateral: Normal Appearance Ears: Normal External Exam, Normal Canal, Hearing Grossly Normal, Normal TMs Nose: Normal Inspection, No Blood Throat/Mouth: Normal Inspection, Normal Lips, Normal Voice, No Airway Compromise Head: Atraumatic, Normocephalic Neck: Normal Inspection Respiratory/Chest: No Respiratory Distress, Lungs Clear, Normal Breath Sounds, No Accessory Muscle Use Cardiovascular: Regular Rate, Rhythm, No Edema, Tachycardia GI/Abdominal Exam: Normal Bowel Sounds, Soft, Non-Tender, Distended (due to obesity). No: Guarding, Rigid, Rebound, Tender Back Exam: Normal Inspection. No: CVA Tenderness (R), CVA Tenderness (L) Extremities: Normal Inspection, Normal Range of Motion, Non-Tender, No Pedal Edema Neurological: Alert, Oriented, CN II-XII Intact, Normal Cognition, No Motor/ Sensory Deficits Psychiatric: Normal Affect, Normal Mood Skin Exam: Warm, Dry, Intact, Normal Color, No Rash Course - Vital Signs Last Recorded V/S: Last Vital Signs Temp 35.4 C L 09/10/19 09:13 Pulse 120 H 09/10/19 09:13 Resp 16 09/10/19 09:13 BP 126/85 09/10/19 09:13 Pulse Ox 95 09/10/19 09:13 - Orders/Labs/Meds Labs: Laboratory Tests 09/10/19 Range/Units 09:33 Sodium 139 L (140-148) mmol/L Potassium 4.0 (3.6-5.2) mmol/L Chloride 100 (100-108) mmol/L Carbon Dioxide 26 (21-32) mmol/L Anion Gap 17.0 H (5.0-14.0) mmol/L BUN 9 D (7-18) mg/dL Creatinine 1.0 (0.6-1.0) mg/dL Est Cr Clr Drug Dosing 74.83 mL/min Estimated GFR (MDRD) > 60 (>60) Glucose 302 H (74-106) mg/dL Calcium 9.6 (8.5-10.1) mg/dL Meds: Medications Discontinued Medications Generic Name Dose Route Start Last Admin Trade Name Geremiasq PRN Reason Stop Dose Admin Lactated Ringer's 1,000 mls @ 1,000 mls/hr 09/10/19 09:21 09/10/19 09:36 Ringers, Lactated IV 09/10/19 10:20 1,000 mls/hr BOLUS ONE Administration Loperamide HCl 4 mg 09/10/19 10:15 09/10/19 10:23 Imodium PO 09/10/19 10:16 4 mg ONETIME ONE Administration Ondansetron HCl 4 mg 09/10/19 09:22 09/10/19 09:36 Zofran Odt PO 09/10/19 09:23 4 mg ONETIME ONE Administration - Re-Assessments/Exams Free Text/Narrative Re-Assessment/Exam: 09/10/19 10:15 Nausea gone after Zofran ODT Departure - Departure Time of Disposition: 10:42 Disposition: Home, Self-Care 01 Condition: Fair Clinical Impression: Nausea vomiting and diarrhea, Elevated blood sugar - Discharge Information *PRESCRIPTION DRUG MONITORING PROGRAM REVIEWED*: Not Applicable *COPY OF PRESCRIPTION DRUG MONITORING REPORT IN PATIENT [place]: Not Applicable Prescriptions: Ondansetron [Zofran ODT] 4 mg PO Q6H PRN #7 tab.dis PRN Reason: Nausea Instructions: Viral Gastroenteritis, Adult, [id number], Hyperglycemia, Easy- to-Read Referrals: Ifrah Lorenzo PA [Primary Care Provider] - Forms: ED Department Discharge Additional Instructions: Use loperamide per package instructions as needed for diarrhea control. Use Zofran as needed for nausea control. Hand washing with soap and water to prevent spread. Drink clear liquids to maintain hydration. Take your Victoza as soon as you get home for your elevated blood sugar. Recheck as needed. Sepsis Event Note - Evaluation Sepsis Screening Result: Possible Sepsis Risk - Focused Exam Vital Signs: Vital Signs Temp Pulse Resp BP Pulse Ox 09/10/19 09:13 35.4 C L 120 H 16 126/85 95 09/10/19 09:12 35.4 C L 120 H 16 126/85 95 Date Exam was Performed: 05/30/20 Time Exam was Performed: 10:42
[2019-09-10] MEDS ORDERED: Loperamide 2 MG Cap PO ONE (10:15)
== END 2019-09-10 10:53 | disposition home or self-care (01) ==
LOC: JP.ED 08:46
DX: R11.2 Nausea with vomiting, unspecified (principal); R19.7 Diarrhea, unspecified; E11.65 Type 2 diabetes mellitus with hyperglycemia; F41.9 Anxiety disorder, unspecified; F31.9 Bipolar disorder, unspecified; E66.9 Obesity, unspecified; F17.210 Nicotine dependence, cigarettes, uncomplicated; Z68.41 Body mass index [BMI] 40.0-44.9, adult; Z91.048 Other nonmedicinal substance allergy status; Z88.8 Allergy status to other drugs, medicaments and biological substances; Z79.899 Other long term (current) drug therapy
CPT/HCPCS: 36415; 80048; 96360; 99284; A9270; J7120

== ENCOUNTER 2019-11-27 01:07 | Observation (INO) | payer MEDICAID ==
--- NOTE | 2019-11-27 01:26 | EDM.PDOC ---
ED HPI GENERAL MEDICAL PROBLEM - General Chief Complaint: Cardiovascular Problem Stated Complaint: MEDICAL VIA [facility] Time Seen by Provider: 11/27/19 01:23 Source of Information: Reports: Patient History Limitations: Reports: No Limitations - History of Present Illness INITIAL COMMENTS - FREE TEXT/NARRATIVE: pt developed a rapid rhythm after haing sexual intercourse. She states this did not stop. She called the ambulance for that reason. She had an ablation in Feb of last year. She has not had alot of problems until recently she has noted small runs of the rapid rhytm. Tonight this was very siustained. Onset: Today, Sudden Duration: Hour(s): Location: Reports: Chest, Other (pt did remain alert and had good vital signs during the episode. ) Associated Symptoms: Reports: Chest Pain, Shortness of Breath - Related Data Allergies Allergy/AdvReac Type Severity Reaction Status Date / Time cat dander Allergy Severe Anaphylactic Verified 11/27/19 01:20 Shock cyclobenzaprine HCl AdvReac Intermediate Nausea Verified 11/27/19 01:20 [From Flexeril] red dye AdvReac Intermediate Vomiting Verified 11/27/19 01:20 Home Meds: Home Meds Metoprolol Succinate [Toprol XL] 25 mg PO DAILY 06/03/15 [History] Albuterol [Ventolin HFA] 2 inh PO ASDIRECTED PRN 03/14/16 [History] Sertraline HCl 150 mg PO BEDTIME 03/21/18 [History] clonazePAM [Klonopin] 1 mg PO BEDTIME PRN 03/22/18 [History] Liraglutide [Victoza] 1.8 ml SQ DAILY 09/10/19 [History] Ondansetron [Zofran ODT] 4 mg PO Q6H PRN #7 tab.dis 09/10/19 [Rx] Ciprofloxacin [Ciprofloxacin HCl] 500 mg PO BID #6 tab 11/27/19 [Rx] glipiZIDE [Glucotrol] 1 tab PO BID 11/27/19 [History] Past Medical History HEENT History: Reports: None Cardiovascular History: Reports: Other (See Below) Other Cardiovascular History: vascular tacycardia Respiratory History: Reports: Asthma, Pneumonia, Recurrent Gastrointestinal History: Reports: None, Cholelithiasis Genitourinary History: Reports: UTI, Recurrent [employer]NCIL History: Reports: Endometriosis, Polycystic Ovaries, Other [employer] History: Mirena IUD in place Musculoskeletal History: Reports: Back Pain, Chronic, Fracture Neurological History: Reports: Seizure Other Neuro History: epidurals for back pain. febrile seizure as child - last seizure was at 14 y.o. Psychiatric History: Reports: Anxiety, Bipolar, Depression, Hallucinations, Panic Attack, Psych Hospitalization(s), PTSD, Suicide Attempt, Suicidal Ideation, Other (See Below) Other Psychiatric History: borderline personality disorder Endocrine/Metabolic History: Reports: Diabetes, Type II, Obesity/BMI 30+ Hematologic History: Reports: Anemia, B12 Deficiency, Blood Transfusion(s) Immunologic History: Reports: Other (See Below) Other Immunologic History: prednisone injections Dermatologic History: Reports: Psoriasis - Infectious Disease History Infectious Disease History: Reports: Chicken Pox - Past Surgical History HEENT Surgical History: Reports: Myringotomy w Tube(s), Oral Surgery Cardiovascular Surgical History: Reports: Vascular Surgery Other Cardiovascular Surgeries/Procedures: ablation's x 4 Respiratory Surgical History: Reports: None GI Surgical History: Reports: Cholecystectomy Female Surgical History: Reports: Other (See Below) Other Female Surgeries/Procedures: cyst removed from ovary Neurological Surgical History: Reports: None Other Neurological Surgeries/Procedures: pt is scheduled for a discectomy Musculoskeletal Surgical History: Reports: None Dermatological Surgical History: Reports: None Social & Family History - Family History Family Medical History: Noncontributory Cardiac: Reports: High Cholesterol, Hypertension Other GI Family History: Alenaehr suffers from microscopic colitis OBGYN: Reports: Dysfunctional uterine bleeding, Endometriosis Endocrine/Metabolic: Reports: Diabetes, type II Oncologic: Reports: Esophageal - Tobacco Use Smoking Status *Q: Current Every Day Smoker Years of Tobacco use: 15 Packs/Tins Daily: 0.1 - Caffeine Use Caffeine Use: Reports: None - Recreational Drug Use Recreational Drug Use: No - Living Situation & Occupation Living situation: Reports: Single, with Family Occupation: Disabled (lives with Boyfriend Eric, and her 8 year old daughter) ED ROS GENERAL - Review of Systems Review Of Systems: See Below Constitutional: Reports: No Symptoms HEENT: Reports: No Symptoms Respiratory: Reports: No Symptoms Cardiovascular: Reports: Chest Pain, Lightheadedness, Palpitations Endocrine: Reports: No Symptoms GI/Abdominal: Reports: No Symptoms : Reports: No Symptoms Musculoskeletal: Reports: No Symptoms Skin: Reports: No Symptoms Neurological: Reports: Dizziness Psychiatric: Reports: Anxiety ED EXAM, GENERAL - Physical Exam Exam: See Below Free Text/Narrative:: pt arrived after having an sustained episode of tachycardia after have sex. She did develop chest pain during the rapid rhythm. She has had a number of episodes and she does remain alert and her vitals usually stay stable. Exam Limited By: No Limitations General Appearance: Alert, No Apparent Distress, Anxious, Other (pt is feeling much better at this time. ) Ears: Normal TMs Nose: Normal Inspection Throat/Mouth: Normal Inspection Head: Atraumatic Neck: Normal Inspection Respiratory/Chest: No Respiratory Distress Cardiovascular: Regular Rate, Rhythm, Other ( rate is at 100 now that she converted. ) GI/Abdominal: Soft, Non-Tender (Female) Exam: Deferred Rectal (Female) Exam: Deferred Back Exam: Normal Inspection Extremities: Normal Inspection Neurological: Alert, Oriented, Normal Cognition Psychiatric: Anxious Course - Vital Signs Last Recorded V/S: Last Vital Signs Temp 35.8 C L 11/27/19 07:00 Pulse 88 11/27/19 08:40 Resp 18 11/27/19 07:00 BP 134/76 11/27/19 08:40 Pulse Ox 91 L 11/27/19 07:00 - Orders/Labs/Meds Labs: Laboratory Tests 11/27/19 11/27/19 11/27/19 Range/Units 01:35 01:35 01:35 WBC 8.9 (4.5-11.0) K/uL RBC 5.26 (3.30-5.50) M/uL Hgb 15.4 H D (12.0-15.0) g/dL Hct 47.8 (36.0-48.0) % MCV 91 (80-98) fL MCH 29 (27-31) pg MCHC 32 (32-36) % Plt Count 256 (150-400) K/uL Neut % (Auto) 50 (36-66) % Lymph % (Auto) 40 (24-44) % [place] % (Auto) 7 H (2-6) % Eos % (Auto) 2 (2-4) % Baso % (Auto) 1 (0-1) % Sodium 140 (140-148) mmol/L Potassium 3.9 (3.6-5.2) mmol/L Chloride 103 (100-108) mmol/L Carbon Dioxide 24 (21-32) mmol/L Anion Gap 12.8 (5.0-14.0) mmol/L BUN 8 (7-18) mg/dL Creatinine 1.0 (0.6-1.0) mg/dL Est Cr Clr Drug Dosing 73.35 mL/min Estimated GFR (MDRD) > 60 (>60) Glucose 206 H (74-106) mg/dL Calcium 9.2 (8.5-10.1) mg/dL Magnesium 1.8 (1.8-2.4) mg/dL Total Bilirubin 0.4 (0.2-1.0) mg/dL AST 32 (15-37) U/L ALT 66 (12-78) U/L Alkaline Phosphatase 140 H (46-116) U/L Troponin I 0.171 H* (0.000-0.056) ng/mL Total Protein 7.1 (6.4-8.2) g/dL Albumin 3.9 (3.4-5.0) g/dL Globulin 3.2 (2.3-3.5) g/dL Albumin/Globulin Ratio 1.2 (1.2-2.2) TSH, Ultra Sensitive (0.358-3.740) uIU/mL Urine Color (YELLOW) Urine Appearance (CLEAR) Urine pH (5.0-8.0) Ur Specific [place] (1.008-1.030) Urine Protein (NEGATIVE) mg/dL Urine Glucose (UA) (NEGATIVE) mg/dL Urine Ketones (NEGATIVE) mg/dL Urine Occult Blood (NEGATIVE) Urine Nitrite (NEGATIVE) Urine Bilirubin (NEGATIVE) Urine Urobilinogen (0.2-1.0) EU/dL Ur Leukocyte Esterase (NEGATIVE) Urine RBC (0-5) Urine WBC (0-5) Ur Epithelial Cells Amorphous Sediment Urine Bacteria Urine Mucus 11/27/19 11/27/19 Range/Units 01:38 01:46 WBC (4.5-11.0) K/uL RBC (3.30-5.50) M/uL Hgb (12.0-15.0) g/dL Hct (36.0-48.0) % MCV (80-98) fL MCH (27-31) pg MCHC (32-36) % Plt Count (150-400) K/uL Neut % (Auto) (36-66) % Lymph % (Auto) (24-44) % [place] % (Auto) (2-6) % Eos % (Auto) (2-4) % Baso % (Auto) (0-1) % Sodium (140-148) mmol/L Potassium (3.6-5.2) mmol/L Chloride (100-108) mmol/L Carbon Dioxide (21-32) mmol/L Anion Gap (5.0-14.0) mmol/L BUN (7-18) mg/dL Creatinine (0.6-1.0) mg/dL Est Cr Clr Drug Dosing mL/min Estimated GFR (MDRD) (>60) Glucose (74-106) mg/dL Calcium (8.5-10.1) mg/dL Magnesium (1.8-2.4) mg/dL Total Bilirubin (0.2-1.0) mg/dL AST (15-37) U/L ALT (12-78) U/L Alkaline Phosphatase (46-116) U/L Troponin I (0.000-0.056) ng/mL Total Protein (6.4-8.2) g/dL Albumin (3.4-5.0) g/dL Globulin (2.3-3.5) g/dL Albumin/Globulin Ratio (1.2-2.2) TSH, Ultra Sensitive 0.944 (0.358-3.740) uIU/mL Urine Color Yellow (YELLOW) Urine Appearance Cloudy A (CLEAR) Urine pH 6.0 (5.0-8.0) Ur Specific [place] 1.020 (1.008-1.030) Urine Protein Negative (NEGATIVE) mg/dL Urine Glucose (UA) 500 H (NEGATIVE) mg/dL Urine Ketones Negative (NEGATIVE) mg/dL Urine Occult Blood Moderate H (NEGATIVE) Urine Nitrite Positive H (NEGATIVE) Urine Bilirubin Negative (NEGATIVE) Urine Urobilinogen 0.2 (0.2-1.0) EU/dL Ur Leukocyte Esterase Small H (NEGATIVE) Urine RBC 5-10 H (0-5) Urine WBC 75-100 H (0-5) Ur Epithelial Cells Few Amorphous Sediment Not seen Urine Bacteria Many Urine Mucus Not seen Meds: Medications Discontinued Medications Generic Name Dose Route Start Last Admin Trade Name Freq PRN Reason Stop Dose Admin Acetaminophen 650 mg 11/27/19 03:45 Tylenol PO Q4H PRN Pain (Mild 1-3)/fever Hydrocodone Bitart/Acetaminophen 1 tab 11/27/19 03:45 [place] 325-5 Mg PO Q4H PRN Pain (moderate 4-6) Albuterol/Ipratropium 3 ml 11/27/19 03:45 Duoneb 3.0-0.5 Mg/3 Ml INH ONETIME PRN Shortness Of Breath/wheezing Clonazepam 1 mg 11/27/19 03:16 11/27/19 03:38 Klonopin PO 11/27/19 03:17 1 mg BEDTIME ONE Administration Clonazepam 1 mg 11/27/19 03:45 Klonopin PO BEDTIME PRN Sleep Docusate Sodium 100 mg 11/27/19 03:45 Colace PO BID PRN Constipation Enoxaparin Sodium 40 mg 11/27/19 03:45 11/27/19 04:22 Lovenox SUBCUT 40 mg DAILY MINOR Administration Enoxaparin Sodium 40 mg 11/28/19 09:00 Lovenox SUBCUT DAILY MINOR Glipizide 10 mg 11/27/19 07:30 11/27/19 08:41 Glucotrol PO 10 mg BIDAC MINOR Administration Sodium Chloride 1,000 mls @ 999 mls/hr 11/27/19 02:00 11/27/19 02:01 Normal Saline IV 999 mls/hr ASDIRECTED MINOR Administration Ceftriaxone Sodium 1 gm/ 50 mls @ 100 mls/hr 11/27/19 02:01 11/27/19 02:07 Sodium Chloride IV 11/27/19 02:30 100 mls/hr ONETIME ONE Administration Sodium Chloride 1,000 mls @ 125 mls/hr 11/27/19 03:45 11/27/19 04:22 Normal Saline IV 125 mls/hr ASDIRECTED MINOR Administration Insulin Human Lispro 0 unit 11/27/19 07:00 11/27/19 08:09 Humalog SUBCUT Not Given QIDACANDBED [facility] Protocol Liraglutide 1.8 mg 11/27/19 09:00 11/27/19 08:42 Victoza SUBCUT 1.8 mg DAILY MINOR Administration Lorazepam 1 mg 11/27/19 03:45 Ativan IV Q6H PRN Anxiety Metoprolol Succinate 25 mg 11/27/19 09:00 11/27/19 08:40 Toprol Xl PO 25 mg DAILY MINOR Administration Metoprolol Tartrate 12.5 mg 11/27/19 03:15 11/27/19 03:38 Lopressor PO 11/27/19 03:16 12.5 mg ONETIME ONE Administration Morphine Sulfate 2 mg 11/27/19 03:45 Morphine IVPUSH Q2H PRN Pain (severe 7-10) Ondansetron HCl 4 mg 11/27/19 03:45 Zofran Odt PO Q6H PRN Nausea able to take PO Ondansetron HCl 4 mg 11/27/19 03:45 Zofran IV Q4H PRN Nausea/Vomiting Pantoprazole Sodium 40 mg 11/27/19 07:30 Protonix PO ACBREAKFAST MINOR Pantoprazole Sodium 40 mg 11/27/19 09:00 11/27/19 08:40 Protonix PO 40 mg ACBREAKFAST MINOR Administration Sertraline HCl 150 mg 11/27/19 21:00 Zoloft PO BEDTIME MINOR - Re-Assessments/Exams Free Text/Narrative Re-Assessment/Exam: 11/27/19 02:35 pt was found to havea elevated bs at 200. She has a trop of 0.171. She did have chest pain when her heart was rapid but as soon as she converted the pain went away. Her vitals are stable at this point and her rhythm is stable. She has had this many times before. She has had 5 ablations. She feels much better at this point. Her urine is clearly infected and she was given rocephen 1 gm iv. She has no fever. 11/27/19 02:35 11/27/19 02:47 The elevated trop was discussed with the pt and she was advised to stay for followup trop. She states she definitely wants to go home. Her daughter who is 10 has alot of emotional instability and she feels that she defintely needs to be there for her. Dr Ly ask that I contact the cardiology dept at the [facility]. 11/30/19 18:17 cardiology at the [facility] was contacted and he felt the plan of observing her trops was apprpiate. If it does rise or there are other concerns we are to call him back. Departure - Departure Time of Disposition: 02:35 Disposition: Refer to Observation Condition: Fair Clinical Impression: Wide-complex tachycardia Sepsis Event Note (ED) - Evaluation Sepsis Screening Result: No Definite Risk
[2019-11-27] MEDS ORDERED: Sodium Chloride 0.9% 1,000 ML IV SCH ×2 (02:00→03:45)
[2019-11-27] MEDS ORDERED: cefTRIAXone 1 GM in Sodium Chloride 0.9% 50 ML IV ONE (02:01)
[2019-11-27] MEDS ORDERED: Metoprolol Tartrate 25 MG Tab PO ONE (03:15)
[2019-11-27] MEDS ORDERED: ClonazePAM 1 MG Tab PO ONE (03:16)
[2019-11-27] MEDS ORDERED: Ondansetron 4 MG/2 ML SDV IV PRN (03:45)
[2019-11-27] MEDS ORDERED: Docusate Sodium 100 MG Cap PO PRN (03:45)
[2019-11-27] MEDS ORDERED: Albuterol/Ipratropium 3.0-0.5 MG/3 ML Neb Soln INH PRN (03:45)
[2019-11-27] MEDS ORDERED: LORazepam 2 MG/ML SDV IV PRN (03:45)
[2019-11-27] MEDS ORDERED: ClonazePAM 1 MG Tab PO PRN (03:45)
[2019-11-27] MEDS ORDERED: Acetaminophen 325 MG Tab PO PRN (03:45)
[2019-11-27] MEDS ORDERED: Ondansetron 4 MG Tab.DIS PO PRN (03:45)
[2019-11-27] MEDS ORDERED: Morphine 2 MG/ML SYRINGE IVPUSH PRN (03:45)
[2019-11-27] MEDS ORDERED: Acetaminophen/HYDROcodone 325-5 MG Tab PO PRN (03:45)
[2019-11-27] MEDS ORDERED: Enoxaparin 40 MG/0.4 ML Syringe SUBCUT SCH (03:45)
--- NOTE | 2019-11-27 03:51 | PCM.HP.2 ---
H&P History of Present Illness - General Date of Service: 11/27/19 Admit Problem/Dx: Admission Diagnosis/Problem Admission Diagnosis/Problem Elevated troponin level Source of Information: Patient, EMS Notes Reviewed, Provider, RN History Limitations: Reports: No Limitations - History of Present Illness Initial Comments - Free Text/Narative: chief complaint: fast heart rate. History Limitations: Reports: No Limitations - History of Present Illness INITIAL COMMENTS - FREE TEXT/NARRATIVE: pt developed a rapid rhythm after haing sexual intercourse. She states this did not stop. She called the ambulance for that reason. She had an ablation in Feb of last year. She has not had a lot of problems until recently she has noted small runs of the rapid rhythm. Tonight this was very sustained. Onset: Today, Sudden Duration: Hour(s): Location: Reports: Chest, Other (pt did remain alert and had good vital signs during the episode. ) Associated Symptoms: Reports: Chest Pain, Shortness of Breath Free Text/Narrative Re-Assessment/Exam: 11/27/19 02:35 pt was found to have a elevated blood glucose at 0200. She has a trop of 0.171. She did have chest pain when her heart was rapid but as soon as she converted the pain went away. Her vitals are stable at this point and her rhythm is stable. She has had this many times before. She has had 5 ablations last ablation 2018. She feels much better at this point. Her urine is clearly infected and she was given Rocephin 1 gm iv. She has no fever. 11/27/19 02:35 11/27/19 02:47 The elevated trop was discussed with the pt and she was advised to stay for followup trop. She states she definitely wants to go home. Her 10 year old daughter has a lot of emotional instability and she feels that she definitely needs to be there for her. ER consulted with Dr. Olivera Cardiology Dept [facility] -agrees with monitoring and repeat Troponin. Onset of Symptoms: Reports: Today Symptom Onset Date: 11/27/19 Symptom Onset Time: 00:05 (resolved by 00:49) Duration of Symptoms: Reports: Minutes: (43 mins) Location: Reports: Chest Quality: Reports: Same as Previous Episode Improves with: Reports: None Worsens with: Reports: None Associated Symptoms: Reports: No Other Symptoms - Related Data Allergies/Adverse Reactions: Allergies Allergy/AdvReac Type Severity Reaction Status Date / Time cat dander Allergy Severe Anaphylactic Verified 11/27/19 01:20 Shock cyclobenzaprine HCl AdvReac Intermediate Nausea Verified 11/27/19 01:20 [From Flexeril] red dye AdvReac Intermediate Vomiting Verified 11/27/19 01:20 Home Medications: Home Meds Metoprolol Succinate [Toprol XL] 25 mg PO DAILY 06/03/15 [History] Albuterol [Ventolin HFA] 2 inh PO ASDIRECTED PRN 03/14/16 [History] Sertraline HCl 150 mg PO BEDTIME 03/21/18 [History] clonazePAM [Klonopin] 1 mg PO BEDTIME PRN 03/22/18 [History] Liraglutide [Victoza] 1.8 ml SQ DAILY 09/10/19 [History] Ondansetron [Zofran ODT] 4 mg PO Q6H PRN #7 tab.dis 09/10/19 [Rx] glipiZIDE [Glucotrol] 1 tab PO BID 11/27/19 [History] Past Medical History HEENT History: Reports: None Cardiovascular History: Reports: Other (See Below) Other Cardiovascular History: vascular tacycardia Respiratory History: Reports: Asthma, Pneumonia, Recurrent Gastrointestinal History: Reports: None, Cholelithiasis Genitourinary History: Reports: UTI, Recurrent 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 febrile seizure as child - last seizure was at 14 y.o. Psychiatric History: Reports: Anxiety, Bipolar, Depression, Hallucinations, Panic Attack, Psych Hospitalization(s), PTSD, Suicide Attempt, Suicidal Ideation, Other (See Below) Other Psychiatric History: borderline personality disorder Endocrine/Metabolic History: Reports: Diabetes, Type II, Obesity/BMI 30+ Hematologic History: Reports: Anemia, B12 Deficiency, Blood Transfusion(s) Immunologic History: Reports: Other (See Below) Other Immunologic History: prednisone injections Dermatologic History: Reports: Psoriasis - Infectious Disease History Infectious Disease History: Reports: Chicken Pox - Past Surgical History HEENT Surgical History: Reports: Myringotomy w Tube(s), Oral Surgery Cardiovascular Surgical History: Reports: Vascular Surgery Other Cardiovascular Surgeries/Procedures: ablation's x 4 Respiratory Surgical History: Reports: None GI Surgical History: Reports: Cholecystectomy Female Surgical History: Reports: Other (See Below) Other Female Surgeries/Procedures: cyst removed from ovary Neurological Surgical History: Reports: None Other Neurological Surgeries/Procedures: pt is scheduled for a discectomy Musculoskeletal Surgical History: Reports: None Dermatological Surgical History: Reports: None Social & Family History - Family History Family Medical History: Noncontributory Cardiac: Reports: High Cholesterol, Hypertension Other GI Family History: Osmani suffers from microscopic colitis OBGYN: Reports: Dysfunctional uterine bleeding, Endometriosis Endocrine/Metabolic: Reports: Diabetes, type II Oncologic: Reports: Esophageal - Tobacco Use Smoking Status *Q: Current Every Day Smoker Years of Tobacco use: 15 Packs/Tins Daily: 0.1 - Caffeine Use Caffeine Use: Reports: None - Recreational Drug Use Recreational Drug Use: No - Living Situation & Occupation Living situation: Reports: Single, with Family Occupation: Disabled (lives with Boyfriend Eric, and her 10 year old daughter.) H&P Review of Systems - Review of Systems: Review Of Systems: See Below General: Reports: Other (anxiety ) HEENT: Reports: No Symptoms Pulmonary: Reports: No Symptoms Cardiovascular: Reports: No Symptoms Gastrointestinal: Reports: No Symptoms Genitourinary: Reports: No Symptoms Musculoskeletal: Reports: No Symptoms Skin: Reports: No Symptoms Psychiatric: Reports: No Symptoms Neurological: Reports: No Symptoms Hematologic/Lymphatic: Reports: No Symptoms Immunologic: Reports: No Symptoms Exam - Exam Exam: See Below - Vital Signs Vital Signs: Last Vital Signs Temp 35.8 C L 11/27/19 01:10 Pulse 91 11/27/19 03:38 Resp 11 L 11/27/19 03:05 BP 112/77 11/27/19 03:38 Pulse Ox 97 11/27/19 03:05 Weight: 109.769 kg - Exam Quality Assessment: DVT Prophylaxis General: Alert, Oriented, 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) HEENT: PERRLA, Hearing Intact, Mucosa Moist & [place], Nares Patent, Normal Nasal Septum, Posterior Pharynx Clear, Conjunctiva Clear, EOMI, EACs Clear, TMs Clear Neck: Supple, Trachea Midline, 2 Lungs: Clear to Auscultation, Normal Respiratory Effort Cardiovascular: Regular Rate, Regular Rhythm, Normal S1, Normal S2 GI/Abdominal Exam: Normal Bowel Sounds, Soft, Non-Tender (Female) Exam: Deferred, Other (last menses 3 years ago.) Back Exam: Normal Inspection, Full Range of Motion Extremities: Normal Inspection, Normal Range of Motion, Non-Tender, No Pedal Edema, Normal Capillary Refill Peripheral Pulses: 2+: Radial (L), Radial (R), Dorsalis Pedis (L), Dorsalis Pedis (R) Skin: Warm, Dry, Intact Neurological: Cranial Nerves Intact, Reflexes Equal Bilateral Neuro Extensive - Mental Status: Alert, Oriented x3, Normal Mood/Affect, Normal Cognition Neuro Extensive - Motor, Sensory, Reflexes: CN II-XII Intact, Normal Gait, Normal Reflexes Psychiatric: Alert, Normal Affect, Normal Mood - Patient Data Lab Results Last 24 hrs: Laboratory Results - last 24 hr 11/27/19 11/27/19 11/27/19 Range/Units 01:35 01:35 01:35 WBC 8.9 (4.5-11.0) K/uL RBC 5.26 (3.30-5.50) M/uL Hgb 15.4 H D (12.0-15.0) g/dL Hct 47.8 (36.0-48.0) % MCV 91 (80-98) fL MCH 29 (27-31) pg MCHC 32 (32-36) % Plt Count 256 (150-400) K/uL Neut % (Auto) 50 (36-66) % Lymph % (Auto) 40 (24-44) % [place]ke[place] % (Auto) 7 H (2-6) % Eos % (Auto) 2 (2-4) % Baso % (Auto) 1 (0-1) % Sodium 140 (140-148) mmol/L Potassium 3.9 (3.6-5.2) mmol/L Chloride 103 (100-108) mmol/L Carbon Dioxide 24 (21-32) mmol/L Anion Gap 12.8 (5.0-14.0) mmol/L BUN 8 (7-18) mg/dL Creatinine 1.0 (0.6-1.0) mg/dL Est Cr Clr Drug Dosing 73.35 mL/min Estimated GFR (MDRD) > 60 (>60) Glucose 206 H (74-106) mg/dL Calcium 9.2 (8.5-10.1) mg/dL Magnesium 1.8 (1.8-2.4) mg/dL Total Bilirubin 0.4 (0.2-1.0) mg/dL AST 32 (15-37) U/L ALT 66 (12-78) U/L Alkaline Phosphatase 140 H (46-116) U/L Troponin I 0.171 H* (0.000-0.056) ng/mL Total Protein 7.1 (6.4-8.2) g/dL Albumin 3.9 (3.4-5.0) g/dL Globulin 3.2 (2.3-3.5) g/dL Albumin/Globulin Ratio 1.2 (1.2-2.2) TSH, Ultra Sensitive (0.358-3.740) uIU/mL Urine Color (YELLOW) Urine Appearance (CLEAR) Urine pH (5.0-8.0) Ur Specific [place] (1.008-1.030) Urine Protein (NEGATIVE) mg/dL Urine Glucose (UA) (NEGATIVE) mg/dL Urine Ketones (NEGATIVE) mg/dL Urine Occult Blood (NEGATIVE) Urine Nitrite (NEGATIVE) Urine Bilirubin (NEGATIVE) Urine Urobilinogen (0.2-1.0) EU/dL Ur Leukocyte Esterase (NEGATIVE) Urine RBC (0-5) Urine WBC (0-5) Ur Epithelial Cells Amorphous Sediment Urine Bacteria Urine Mucus 11/27/19 11/27/19 Range/Units 01:38 01:46 WBC (4.5-11.0) K/uL RBC (3.30-5.50) M/uL Hgb (12.0-15.0) g/dL Hct (36.0-48.0) % MCV (80-98) fL MCH (27-31) pg MCHC (32-36) % Plt Count (150-400) K/uL Neut % (Auto) (36-66) % Lymph % (Auto) (24-44) % Mckean % (Auto) (2-6) % Eos % (Auto) (2-4) % Baso % (Auto) (0-1) % Sodium (140-148) mmol/L Potassium (3.6-5.2) mmol/L Chloride (100-108) mmol/L Carbon Dioxide (21-32) mmol/L Anion Gap (5.0-14.0) mmol/L BUN (7-18) mg/dL Creatinine (0.6-1.0) mg/dL Est Cr Clr Drug Dosing mL/min Estimated GFR (MDRD) (>60) Glucose (74-106) mg/dL Calcium (8.5-10.1) mg/dL Magnesium (1.8-2.4) mg/dL Total Bilirubin (0.2-1.0) mg/dL AST (15-37) U/L ALT (12-78) U/L Alkaline Phosphatase (46-116) U/L Troponin I (0.000-0.056) ng/mL Total Protein (6.4-8.2) g/dL Albumin (3.4-5.0) g/dL Globulin (2.3-3.5) g/dL Albumin/Globulin Ratio (1.2-2.2) TSH, Ultra Sensitive 0.944 (0.358-3.740) uIU/mL Urine Color Yellow (YELLOW) Urine Appearance Cloudy A (CLEAR) Urine pH 6.0 (5.0-8.0) Ur Specific [place] 1.020 (1.008-1.030) Urine Protein Negative (NEGATIVE) mg/dL Urine Glucose (UA) 500 H (NEGATIVE) mg/dL Urine Ketones Negative (NEGATIVE) mg/dL Urine Occult Blood Moderate H (NEGATIVE) Urine Nitrite Positive H (NEGATIVE) Urine Bilirubin Negative (NEGATIVE) Urine Urobilinogen 0.2 (0.2-1.0) EU/dL Ur Leukocyte Esterase Small H (NEGATIVE) Urine RBC 5-10 H (0-5) Urine WBC 75-100 H (0-5) Ur Epithelial Cells Few Amorphous Sediment Not seen Urine Bacteria Many Urine Mucus Not seen Result Diagrams: 11/27/19 01:35 11/27/19 01:35 Sepsis Event Note - Evaluation Sepsis Screening Result: No Definite Risk - Focused Exam Vital Signs: Vital Signs Temp Pulse Pulse Resp BP BP Pulse Ox 11/27/19 03:38 91 112/77 11/27/19 03:05 96 11 L 124/82 97 11/27/19 02:45 102 H 11 L 110/73 96 11/27/19 02:25 100 14 117/68 96 11/27/19 02:05 108 H 118/72 11/27/19 01:45 114 H 138/78 11/27/19 01:27 117 H 15 136/76 94 L 11/27/19 01:10 35.8 C L 120 H 24 H 144/83 H 90 L - Problem List (1) Elevated troponin level SNOMED Code(s): 524138601, 635640185, 128213353 ICD Code: R79.89 - OTHER SPECIFIED ABNORMAL FINDINGS OF BLOOD CHEMISTRY Status: Acute Current Visit: Yes (2) History of supraventricular tachycardia SNOMED Code(s): 949844440510343 ICD Code: Z86.79 - PERSONAL HISTORY OF OTHER DISEASES OF THE CIRCULATORY SYSTEM Status: Acute Priority: High Current Visit: Yes (3) History of radiofrequency ablation procedure for cardiac arrhythmia SNOMED Code(s): 601345587 ICD Code: Z98.890 - OTHER SPECIFIED POSTPROCEDURAL STATES Status: Acute Priority: High Current Visit: Yes (4) Diabetes mellitus type 2 in obese SNOMED Code(s): 56027482 ICD Code: E11.69 - TYPE 2 DIABETES MELLITUS WITH OTHER SPECIFIED COMPLICATION; E66.9 - OBESITY, UNSPECIFIED Status: Acute Priority: High Current Visit: Yes (5) KERRY (generalized anxiety disorder) SNOMED Code(s): 91051086 ICD Code: F41.1 - GENERALIZED ANXIETY DISORDER Status: Chronic Priority: Low Current Visit: Yes (6) Tobacco abuse SNOMED Code(s): 865052198 ICD Code: Z72.0 - TOBACCO USE Status: Acute Priority: Low Current Visit: No (7) Urinary tract infection SNOMED Code(s): 98390529 ICD Code: N39.0 - URINARY TRACT INFECTION, SITE NOT SPECIFIED Status: Acute Priority: High Current Visit: Yes Qualifiers: Urinary tract infection type: acute cystitis Hematuria presence: without hematuria Qualified Code(s): N30.00 - Acute cystitis without hematuria Problem List Initiated/Reviewed/Updated: Yes Orders Last 24hrs: Active Orders 24 hr Category Date Time Status Cardiac Monitoring [RC] CONTINUOUS Care 11/27/19 03:45 Active Communication Order [RC] PER UNIT ROUTINE Care 11/27/19 03:45 Active Communication Order [RC] PER UNIT ROUTINE Care 11/27/19 03:45 Active Diabetes Education [RC] Click to Edit Care 11/27/19 03:45 Active Intake and Output [RC] QSHIFT Care 11/27/19 03:45 Active Notify Provider Vital Signs [RC] ASDIRECTED Care 11/27/19 03:45 Active Notify Provider [RC] PRN Care 11/27/19 03:45 Active Oxygen Therapy [RC] PRN Care 11/27/19 03:45 Active Pulse Oximetry [RC] PRN Care 11/27/19 03:45 Active RT Aerosol Therapy [RC] ASDIRECTED Care 11/27/19 03:45 Active Up ad Erika [RC] ASDIRECTED Care 11/27/19 03:45 Active VTE/DVT Education [RC] Per Unit Routine Care 11/27/19 03:45 Active Vital Signs [RC] Q4H Care 11/27/19 03:45 Active Consistent Carbohydrate Diet [DIET] Diet 11/27/19 Breakfast Active CULTURE URINE [RM] Stat Lab 11/27/19 02:07 Received GLUCOSE POC LAB TO COLLECT JPM [POC] QIDACANDBED Lab 11/27/19 07:30 Ordered GLUCOSE POC LAB TO COLLECT JPM [POC] QIDACANDBED Lab 11/27/19 11:30 Ordered GLUCOSE POC LAB TO COLLECT JPM [POC] QIDACANDBED Lab 11/27/19 16:30 Ordered GLUCOSE POC LAB TO COLLECT JPM [POC] QIDACANDBED Lab 11/27/19 21:00 Ordered TROPONIN I [CHEM] Routine Lab 11/27/19 04:10 Ordered TROPONIN I [CHEM] Timed Lab 11/28/19 10:11 Ordered Acetaminophen [Tylenol] Med 11/27/19 03:45 Ordered 650 mg PO Q4H PRN Acetaminophen/HYDROcodone [[place] 325-5 MG] Med 11/27/19 03:45 Ordered 1 tab PO Q4H PRN Albuterol/Ipratropium [DuoNeb 3.0-0.5 MG/3 ML] Med 11/27/19 03:45 Ordered 3 ml INH ONETIME PRN ClonazePAM [KlonoPIN] Med 11/27/19 03:45 Ordered 1 mg PO BEDTIME PRN Docusate Sodium [Colace] Med 11/27/19 03:45 Ordered 100 mg PO BID PRN Enoxaparin [Lovenox] Med 11/27/19 03:45 Ordered 40 mg SUBCUT DAILY Insulin Lispro [HumaLOG] Med 11/27/19 07:00 Ordered See Protocol SUBCUT QIDACANDBED LORazepam [Ativan] Med 11/27/19 03:45 Ordered 1 mg IV Q6H PRN Liraglutide [Victoza] Med 11/27/19 09:00 Ordered 10.8 mg SUBCUT DAILY Metoprolol Succinate [Toprol XL] Med 11/27/19 09:00 Ordered 25 mg PO DAILY Morphine Med 11/27/19 03:45 Ordered 2 mg IVPUSH Q2H PRN Ondansetron [Zofran ODT] Med 11/27/19 03:45 Ordered 4 mg PO Q6H PRN Ondansetron [Zofran] Med 11/27/19 03:45 Ordered 4 mg IV Q4H PRN Sertraline HCl [Sertraline HCl] Med 11/27/19 21:00 Ordered 150 mg PO BEDTIME Sodium Chloride 0.9% [Normal Saline] 1,000 ml Med 11/27/19 03:45 Ordered IV ASDIRECTED glipiZIDE [Glucotrol] Med 11/27/19 09:00 Ordered 1 tab PO BID Resuscitation Status Routine Resus Stat 11/27/19 03:26 Ordered EKG 12 Lead [EK] Routine Ther 11/27/19 01:28 Stop Req EKG 12 Lead [EK] Routine Ther 11/27/19 03:18 Stop Req Medication Orders Acetaminophen (Tylenol) 650 mg PO Q4H PRN PRN Reason: Pain (Mild 1-3)/fever Hydrocodone Bitart/Acetaminophen ([place] 325-5 Mg) 1 tab PO Q4H PRN PRN Reason: Pain (moderate 4-6) Albuterol/Ipratropium (Duoneb 3.0-0.5 Mg/3 Ml) 3 ml INH ONETIME PRN PRN Reason: Shortness Of Breath/wheezing Clonazepam (Klonopin) 1 mg PO BEDTIME PRN PRN Reason: Sleep Docusate Sodium (Colace) 100 mg PO BID PRN PRN Reason: Constipation Enoxaparin Sodium (Lovenox) 40 mg SUBCUT DAILY MINOR Sodium Chloride (Normal Saline) 1,000 mls @ 125 mls/hr IV ASDIRECTED MINOR Insulin Human Lispro (Humalog) 0 unit SUBCUT QIDACANDBED MINOR; Protocol Liraglutide (Victoza) 10.8 mg SUBCUT DAILY [facility] Lorazepam (Ativan) 1 mg IV Q6H PRN PRN Reason: Anxiety Metoprolol Succinate (Toprol Xl) 25 mg PO DAILY MINOR Morphine Sulfate (Morphine) 2 mg IVPUSH Q2H PRN PRN Reason: Pain (severe 7-10) Non-Formulary Medication (Glipizide [Glucotrol]) 1 tab PO BID MINOR Non-Formulary Medication (Sertraline Hcl [Sertraline Hcl]) 150 mg PO BEDTIME MINOR Ondansetron HCl (Zofran Odt) 4 mg PO Q6H PRN PRN Reason: Nausea able to take PO Ondansetron HCl (Zofran) 4 mg IV Q4H PRN PRN Reason: Nausea/Vomiting Assessment/Plan Comment:: ASSESSMENT AND PLAN- Elevated Troponin with recent 40+ minutes of SVT. pt developed a rapid rhythm after haing sexual intercourse. She states this did not stop. She called the ambulance for that reason. She had an ablation in Feb of last year. She has not had a lot of problems until recently she has noted small runs of the rapid rhythm. Tonight this was very sustained. pt was found to have a elevated blood glucose at 0200. She has a trop of 0.171. She did have chest pain when her heart was rapid but as soon as she converted the pain went away. Her vitals are stable at this point and her rhythm is stable. She has had this many times before. She has had 5 ablations last ablation 2018. She feels much better at this point. Her urine +WBC, +RBC, nitrate positive- given Rocephin 1 gm IV. The elevated trop was discussed with the pt and she was advised to stay for followup trop. She states she definitely wants to go home. Her 10 year old daughter has a lot of emotional instability and she feels that she definitely needs to be there for her. ER MD consulted with Dr. Olivera Cardiology Dept [facility] -agrees with monitoring and repeat Troponin. Elevated Troponin, recent 40+ minutes of SVT-resolved without intervention. hx of cardiac ablation x 5 - first ablation age 22 last 2018. -IV fluids for hydration -cardiac monitoring -repeat Troponin at 0400 and 10:00 Urinary Tract Infection -IV fluids -IV Rocephin every 24 hours -urine culture pending DIABETES TYPE 2- reports monitors blood glucose two times a day. average blood glucose 160's -blood glucose before meals and at bedtime -Insulin NovoLog low dose sliding scale coverage -continue outpatient medication- Glipizide 10 mg po bid and Victoza 1.8 mg subcut daily Anxiety disorder -continue outpatient medications MAINTENANCE ISSUES -DVT prophylaxis- Lovenox 40 mg subcut daily -GI prophylaxis- Protonix 40 mg po daily -Hess catheter- not indicated -Nutrition- consistent carb diet -Nicotine dependence- declines CODE STATUS-FULL CODE ADMISSION STATUS-this patient will be admitted to observation status, expect no more than a one night hospital stay for evaluation and management of problems as outlined above. DISPOSITION-anticipate discharge to home after the hospital stay. PRIMARY CARE PROVIDER-Dr. Lorenzo, [place], [place]. and Dr. Olivera, Cardiology, [facility] HOSPITALIST- Dr. Ly - Mortality Measure Prognosis:: Good
[2019-11-27 04:09] VITALS: PULSE 88
--- NOTE | 2019-11-27 05:33 | PCM.SN.2 ---
- Free Text/Narrative Note: time: 524 call from 2 [place] lab results S: patient resting, chest pain free. no distress is noted O: lab Troponin at 0135 is 0.171 at 0410 is 0.494 vital signs 35.8-88-18 B/P 130/79 O2 sat 95% telemetry sinus rhythm A: elevated troponin P: consulted with Hospitalist. will repeat Troponin at 10 am. continue with present plan of care.
[2019-11-27] MEDS ORDERED: Insulin Lispro 100 Unit/ML 3 ML KwikPen SUBCUT SCH (07:00)
[2019-11-27 07:15] VITALS: BP 134/76
[2019-11-27] MEDS ORDERED: Pantoprazole 40 MG Tab.CR PO SCH ×2 (07:30→09:00)
[2019-11-27] MEDS ORDERED: glipiZIDE 5 MG Tab PO SCH (07:30)
[2019-11-27] MEDS ORDERED: Metoprolol Succinate 25 MG Tab.ER PO SCH (09:00)
[2019-11-27] MEDS ORDERED: Liraglutide (rDNA Origin) 0.6 MG/0.1 ML 3 ML Pen SUBCUT SCH (09:00)
--- NOTE | 2019-11-27 10:57 | PCM.DCSUM1 ---
Discharge Summary - Hospital Course Brief History: 29-year-old female with history of SVT status post multiple ablations, type 2 diabetes mellitus, obesity who presented with acute onset of palpitations and chest pain as well as shortness of breath. She was admitted for observation following an episode of SVT and mild troponin elevation. Diagnosis: Stroke: No - Discharge Data Discharge Date: 11/27/19 Discharge Disposition: Home, Self-Care 01 Condition: Good - Referral to Home Health Primary Care Physician: PCP None - Discharge Diagnosis/Problem(s) (1) SVT (supraventricular tachycardia) SNOMED Code(s): 0650249 ICD Code: I47.1 - SUPRAVENTRICULAR TACHYCARDIA Status: Acute (2) Chest pain SNOMED Code(s): 13419830 ICD Code: R07.9 - CHEST PAIN, UNSPECIFIED Status: Acute Qualifiers: Chest pain type: chest pain due to myocardial ischemia Ischemic chest pain type: unspecified angina pectoris type Qualified Code(s): I25.9 - Chronic ischemic heart disease, unspecified (3) Elevated troponin level SNOMED Code(s): 463905466, 534040077, 271775484 ICD Code: R79.89 - OTHER SPECIFIED ABNORMAL FINDINGS OF BLOOD CHEMISTRY Status: Acute (4) Urinary tract infection SNOMED Code(s): 91227782 ICD Code: N39.0 - URINARY TRACT INFECTION, SITE NOT SPECIFIED Status: Acute Priority: High Qualifiers: Urinary tract infection type: acute cystitis Hematuria presence: without hematuria Qualified Code(s): N30.00 - Acute cystitis without hematuria - Patient Summary/Data Hospital Course: Deb presented to the emergency room by ambulance after developing chest pain and palpitations at home. Symptoms did not subside leading to her presentation to the emergency room. In the emergency room she was noted to have a wide- complex tachycardia with a rate of more than 200. The rhythm did convert to a sinus rhythm on its own. As soon as she converted to sinus rhythm her chest pain resolved. Initial troponin was noted to be mildly elevated at 0.17. The case was discussed with her swing tender at the [facility]. She was admitted for observation and repeat troponin testing. Since admission to the hospital she has been very stable. She has not had any chest pain or shortness of breath. She has been up and walking around and made extensive trips up and down the halls with no symptoms. She has remained in a sinus rhythm. Her second troponin remained elevated at 0.4 and her third troponin was elevated at 0.7. I suspect that with the very slow rise that this is related to demand ischemia secondary to her very rapid rhythm rather than the steep rise I would expect with an acute coronary syndrome. She feels well and would like to go home. We did discuss the utility of getting 1 additional troponin to ensure that her level is trending down. She stated she would much prefer to go home at this point to be with her daughter. She has been stable and very active with no symptoms so I believe she is safe to go home at this point. She is going to be contacting her swing tender tomorrow to set up follow-up in the near future. She will return if she has recurrence of her symptoms. - Patient Instructions Diet: Diabetic Diet Activity: As Tolerated Showering/Bathing: May Shower Notify Provider of: Fever, Increased Pain Other/Special Instructions: 1. Take ciprofloxacin 500 mg twice daily for 6 doses. Your first dose is due tonight. 2. Continue your usual home meds. 3. Follow up with your swing tender at their next available appointment. - Discharge Plan *PRESCRIPTION DRUG MONITORING PROGRAM REVIEWED*: Not Applicable *COPY OF PRESCRIPTION DRUG MONITORING REPORT IN PATIENT [place]: Not Applicable Prescriptions/Med Rec: Ciprofloxacin [Ciprofloxacin HCl] 500 mg PO BID #6 tab Home Medications: Home Meds Metoprolol Succinate [Toprol XL] 25 mg PO DAILY 06/03/15 [History] Albuterol [Ventolin HFA] 2 inh PO ASDIRECTED PRN 03/14/16 [History] Sertraline HCl 150 mg PO BEDTIME 03/21/18 [History] clonazePAM [Klonopin] 1 mg PO BEDTIME PRN 03/22/18 [History] Liraglutide [Victoza] 1.8 ml SQ DAILY 09/10/19 [History] Ondansetron [Zofran ODT] 4 mg PO Q6H PRN #7 tab.dis 09/10/19 [Rx] Ciprofloxacin [Ciprofloxacin HCl] 500 mg PO BID #6 tab 11/27/19 [Rx] glipiZIDE [Glucotrol] 1 tab PO BID 11/27/19 [History] Oxygen Therapy Mode: Room Air Patient Handouts: Urinary Tract Infection, Adult, Ciprofloxacin tablets Referrals: PCP,None [Primary Care Provider] - (f/u with your primary care as needed F/u with your swing tender at the next available appointment ) - Discharge Summary/Plan Comment DC Time >30 min.: No - Patient Data Vitals - Most Recent: Last Vital Signs Temp 35.8 C L 11/27/19 07:00 Pulse 88 11/27/19 08:40 Resp 18 11/27/19 07:00 BP 134/76 11/27/19 08:40 Pulse Ox 91 L 11/27/19 07:00 Weight - Most Recent: 109.769 kg I&O - Last 24 hours: Intake & Output 11/26/19 11/27/19 11/27/19 22:59 06:59 14:59 Intake Total 120 Output Total 425 400 Balance -425 -280 Lab Results - Last 24 hrs: Laboratory Results - last 24 hr 11/27/19 11/27/19 11/27/19 Range/Units 01:35 01:35 01:35 WBC 8.9 (4.5-11.0) K/uL RBC 5.26 (3.30-5.50) M/uL Hgb 15.4 H D (12.0-15.0) g/dL Hct 47.8 (36.0-48.0) % MCV 91 (80-98) fL MCH 29 (27-31) pg MCHC 32 (32-36) % Plt Count 256 (150-400) K/uL Neut % (Auto) 50 (36-66) % Lymph % (Auto) 40 (24-44) % [place] % (Auto) 7 H (2-6) % Eos % (Auto) 2 (2-4) % Baso % (Auto) 1 (0-1) % Sodium 140 (140-148) mmol/L Potassium 3.9 (3.6-5.2) mmol/L Chloride 103 (100-108) mmol/L Carbon Dioxide 24 (21-32) mmol/L Anion Gap 12.8 (5.0-14.0) mmol/L BUN 8 (7-18) mg/dL Creatinine 1.0 (0.6-1.0) mg/dL Est Cr Clr Drug Dosing 73.35 mL/min Estimated GFR (MDRD) > 60 (>60) Glucose 206 H (74-106) mg/dL POC Glucose (74-106) MG/DL Calcium 9.2 (8.5-10.1) mg/dL Magnesium 1.8 (1.8-2.4) mg/dL Total Bilirubin 0.4 (0.2-1.0) mg/dL AST 32 (15-37) U/L ALT 66 (12-78) U/L Alkaline Phosphatase 140 H (46-116) U/L Troponin I 0.171 H* (0.000-0.056) ng/mL Total Protein 7.1 (6.4-8.2) g/dL Albumin 3.9 (3.4-5.0) g/dL Globulin 3.2 (2.3-3.5) g/dL Albumin/Globulin Ratio 1.2 (1.2-2.2) TSH, Ultra Sensitive (0.358-3.740) uIU/mL Urine Color (YELLOW) Urine Appearance (CLEAR) Urine pH (5.0-8.0) Ur Specific [place] (1.008-1.030) Urine Protein (NEGATIVE) mg/dL Urine Glucose (UA) (NEGATIVE) mg/dL Urine Ketones (NEGATIVE) mg/dL Urine Occult Blood (NEGATIVE) Urine Nitrite (NEGATIVE) Urine Bilirubin (NEGATIVE) Urine Urobilinogen (0.2-1.0) EU/dL Ur Leukocyte Esterase (NEGATIVE) Urine RBC (0-5) Urine WBC (0-5) Ur Epithelial Cells Amorphous Sediment Urine Bacteria Urine Mucus 11/27/19 11/27/19 11/27/19 Range/Units 01:38 01:46 04:10 WBC (4.5-11.0) K/uL RBC (3.30-5.50) M/uL Hgb (12.0-15.0) g/dL Hct (36.0-48.0) % MCV (80-98) fL MCH (27-31) pg MCHC (32-36) % Plt Count (150-400) K/uL Neut % (Auto) (36-66) % Lymph % (Auto) (24-44) % [place] % (Auto) (2-6) % Eos % (Auto) (2-4) % Baso % (Auto) (0-1) % Sodium (140-148) mmol/L Potassium (3.6-5.2) mmol/L Chloride (100-108) mmol/L Carbon Dioxide (21-32) mmol/L Anion Gap (5.0-14.0) mmol/L BUN (7-18) mg/dL Creatinine (0.6-1.0) mg/dL Est Cr Clr Drug Dosing mL/min Estimated GFR (MDRD) (>60) Glucose (74-106) mg/dL POC Glucose (74-106) MG/DL Calcium (8.5-10.1) mg/dL Magnesium (1.8-2.4) mg/dL Total Bilirubin (0.2-1.0) mg/dL AST (15-37) U/L ALT (12-78) U/L Alkaline Phosphatase (46-116) U/L Troponin I 0.494 H* (0.000-0.056) ng/mL Total Protein (6.4-8.2) g/dL Albumin (3.4-5.0) g/dL Globulin (2.3-3.5) g/dL Albumin/Globulin Ratio (1.2-2.2) TSH, Ultra Sensitive 0.944 (0.358-3.740) uIU/mL Urine Color Yellow (YELLOW) Urine Appearance Cloudy A (CLEAR) Urine pH 6.0 (5.0-8.0) Ur Specific [place] 1.020 (1.008-1.030) Urine Protein Negative (NEGATIVE) mg/dL Urine Glucose (UA) 500 H (NEGATIVE) mg/dL Urine Ketones Negative (NEGATIVE) mg/dL Urine Occult Blood Moderate H (NEGATIVE) Urine Nitrite Positive H (NEGATIVE) Urine Bilirubin Negative (NEGATIVE) Urine Urobilinogen 0.2 (0.2-1.0) EU/dL Ur Leukocyte Esterase Small H (NEGATIVE) Urine RBC 5-10 H (0-5) Urine WBC 75-100 H (0-5) Ur Epithelial Cells Few Amorphous Sediment Not seen Urine Bacteria Many Urine Mucus Not seen 11/27/19 11/27/19 Range/Units 07:30 09:58 WBC (4.5-11.0) K/uL RBC (3.30-5.50) M/uL Hgb (12.0-15.0) g/dL Hct (36.0-48.0) % MCV (80-98) fL MCH (27-31) pg MCHC (32-36) % Plt Count (150-400) K/uL Neut % (Auto) (36-66) % Lymph % (Auto) (24-44) % [place] % (Auto) (2-6) % Eos % (Auto) (2-4) % Baso % (Auto) (0-1) % Sodium (140-148) mmol/L Potassium (3.6-5.2) mmol/L Chloride (100-108) mmol/L Carbon Dioxide (21-32) mmol/L Anion Gap (5.0-14.0) mmol/L BUN (7-18) mg/dL Creatinine (0.6-1.0) mg/dL Est Cr Clr Drug Dosing mL/min Estimated GFR (MDRD) (>60) Glucose (74-106) mg/dL POC Glucose 143 H (74-106) MG/DL Calcium (8.5-10.1) mg/dL Magnesium (1.8-2.4) mg/dL Total Bilirubin (0.2-1.0) mg/dL AST (15-37) U/L ALT (12-78) U/L Alkaline Phosphatase (46-116) U/L Troponin I 0.799 H* (0.000-0.056) ng/mL Total Protein (6.4-8.2) g/dL Albumin (3.4-5.0) g/dL Globulin (2.3-3.5) g/dL Albumin/Globulin Ratio (1.2-2.2) TSH, Ultra Sensitive (0.358-3.740) uIU/mL Urine Color (YELLOW) Urine Appearance (CLEAR) Urine pH (5.0-8.0) Ur Specific [place] (1.008-1.030) Urine Protein (NEGATIVE) mg/dL Urine Glucose (UA) (NEGATIVE) mg/dL Urine Ketones (NEGATIVE) mg/dL Urine Occult Blood (NEGATIVE) Urine Nitrite (NEGATIVE) Urine Bilirubin (NEGATIVE) Urine Urobilinogen (0.2-1.0) EU/dL Ur Leukocyte Esterase (NEGATIVE) Urine RBC (0-5) Urine WBC (0-5) Ur Epithelial Cells Amorphous Sediment Urine Bacteria Urine Mucus Med Orders - Current: Current Medications Acetaminophen (Tylenol) 650 mg PO Q4H PRN PRN Reason: Pain (Mild 1-3)/fever Hydrocodone Bitart/Acetaminophen ([place] 325-5 Mg) 1 tab PO Q4H PRN PRN Reason: Pain (moderate 4-6) Albuterol/Ipratropium (Duoneb 3.0-0.5 Mg/3 Ml) 3 ml INH ONETIME PRN PRN Reason: Shortness Of Breath/wheezing Clonazepam (Klonopin) 1 mg PO BEDTIME PRN PRN Reason: Sleep Docusate Sodium (Colace) 100 mg PO BID PRN PRN Reason: Constipation Enoxaparin Sodium (Lovenox) 40 mg SUBCUT DAILY [facility] Glipizide (Glucotrol) 10 mg PO BIDAC [facility] Last Admin: 11/27/19 08:41 Dose: 10 mg Documented by: Sodium Chloride (Normal Saline) 1,000 mls @ 125 mls/hr IV ASDIRECTED [facility] Last Admin: 11/27/19 04:22 Dose: 125 mls/hr Documented by: Insulin Human Lispro (Humalog) 0 unit SUBCUT QIDACANDBED [facility]; Protocol Last Admin: 11/27/19 08:09 Dose: Not Given Documented by: Liraglutide (Victoza) 1.8 mg SUBCUT DAILY [facility] Last Admin: 11/27/19 08:42 Dose: 1.8 mg Documented by: Lorazepam (Ativan) 1 mg IV Q6H PRN PRN Reason: Anxiety Metoprolol Succinate (Toprol Xl) 25 mg PO DAILY [facility] Last Admin: 11/27/19 08:40 Dose: 25 mg Documented by: Morphine Sulfate (Morphine) 2 mg IVPUSH Q2H PRN PRN Reason: Pain (severe 7-10) Ondansetron HCl (Zofran Odt) 4 mg PO Q6H PRN PRN Reason: Nausea able to take PO Ondansetron HCl (Zofran) 4 mg IV Q4H PRN PRN Reason: Nausea/Vomiting Pantoprazole Sodium (Protonix) 40 mg PO ACBREAKFAST [facility] Last Admin: 11/27/19 08:40 Dose: 40 mg Documented by: Sertraline HCl (Zoloft) 150 mg PO BEDTIME [facility] Discontinued Medications Clonazepam (Klonopin) 1 mg PO BEDTIME ONE Stop: 11/27/19 03:17 Last Admin: 11/27/19 03:38 Dose: 1 mg Documented by: Enoxaparin Sodium (Lovenox) 40 mg SUBCUT DAILY [facility] Last Admin: 11/27/19 04:22 Dose: 40 mg Documented by: Sodium Chloride (Normal Saline) 1,000 mls @ 999 mls/hr IV ASDIRECTED [facility] Last Admin: 11/27/19 02:01 Dose: 999 mls/hr Documented by: Ceftriaxone Sodium 1 gm/ (Sodium Chloride) 50 mls @ 100 mls/hr IV ONETIME ONE Stop: 11/27/19 02:30 Last Admin: 11/27/19 02:07 Dose: 100 mls/hr Documented by: Metoprolol Tartrate (Lopressor) 12.5 mg PO ONETIME ONE Stop: 11/27/19 03:16 Last Admin: 11/27/19 03:38 Dose: 12.5 mg Documented by: Pantoprazole Sodium (Protonix) 40 mg PO ACBREAKFAST [facility]
[2019-11-27] MEDS ORDERED: Sertraline 50 MG Tab PO SCH (21:00)
[2019-11-28] MEDS ORDERED: Enoxaparin 40 MG/0.4 ML Syringe SUBCUT SCH (09:00)
== END 2019-11-27 11:26 | disposition home or self-care (01) ==
LOC: JP.ED 01:07 → JP.MS 03:24
PROVIDERS: ADMIT Internal Medicine; ATTEND Internal Medicine
DX: I47.1 Supraventricular tachycardia (principal); F41.9 Anxiety disorder, unspecified; J45.909 Unspecified asthma, uncomplicated; E66.9 Obesity, unspecified; F31.9 Bipolar disorder, unspecified; F17.210 Nicotine dependence, cigarettes, uncomplicated; R79.89 Other specified abnormal findings of blood chemistry; E11.69 Type 2 diabetes mellitus with other specified complication; I25.9 Chronic ischemic heart disease, unspecified; I10 Essential (primary) hypertension; F41.1 Generalized anxiety disorder; N30.00 Acute cystitis without hematuria; Z88.8 Allergy status to other drugs, medicaments and biological substances; Z79.84 Long term (current) use of oral hypoglycemic drugs; Z86.79 Personal history of other diseases of the circulatory system; Z98.890 Other specified postprocedural states; Z68.41 Body mass index [BMI] 40.0-44.9, adult
CPT/HCPCS: 36415; 80053; 81001; 82962; 83735; 84443; 84484; 85025; 87086; 87088; 87186; 93005; 93010; 96361; 96365; 96372; 99285-25; A9270-GY; G0378; J0696; J1650; J1815; J7030; J7050

== ENCOUNTER 2020-04-30 10:26 | Emergency (ER) | payer MEDICAID ==
[2020-04-30 10:55] VITALS: BP 133/69; PULSE 73
--- NOTE | 2020-04-30 11:31 | EDM.PDOC ---
ED HPI GENERAL MEDICAL PROBLEM - General Chief Complaint: ENT Problem Stated Complaint: LEFT SIDE OF MOUTH IS SORE Time Seen by Provider: 04/30/20 11:15 Source of Information: Reports: Patient, Old Records, RN History Limitations: Reports: No Limitations - History of Present Illness INITIAL COMMENTS - FREE TEXT/NARRATIVE: 29 yo female here with L jaw pain for a few days. Has not sought either dental care or an appt with her provider. Is not taking anything for her pain. Her mother has "TMJ". Onset: Gradual Duration: Day(s):, Waxing/Waning Location: Reports: Face (L side) Quality: Reports: Ache Severity: Mild Worsens with: Reports: Eating Context: Reports: Other (see HPI) Associated Symptoms: Reports: No Other Symptoms Treatments WASHER CARCASS: Reports: Other (see below) (none) Oral/Mouth Pain Score (Numeric/FACES): 8 - Related Data Allergies Allergy/AdvReac Type Severity Reaction Status Date / Time cat dander Allergy Severe Anaphylactic Verified 04/30/20 11:01 Shock cyclobenzaprine HCl AdvReac Intermediate Nausea Verified 04/30/20 11:01 [From Flexeril] red dye AdvReac Intermediate Vomiting Verified 04/30/20 11:01 Home Meds: Home Meds Metoprolol Succinate [Toprol XL] 25 mg PO DAILY 06/03/15 [History] Albuterol [Ventolin HFA] 2 inh PO ASDIRECTED PRN 03/14/16 [History] Sertraline HCl 150 mg PO BEDTIME 03/21/18 [History] clonazePAM [Klonopin] 1 mg PO BEDTIME PRN 03/22/18 [History] Liraglutide [Victoza] 1.8 ml SQ DAILY 09/10/19 [History] glipiZIDE [Glucotrol] 1 tab PO BID 11/27/19 [History] Amiodarone HCl 100 mg PO DAILY 04/30/20 [History] Empagliflozin [Jardiance] 10 mg PO DAILY 04/30/20 [History] Past Medical History HEENT History: Reports: None Cardiovascular History: Reports: Other (See Below) Other Cardiovascular History: vascular tacycardia Respiratory History: Reports: Asthma, Pneumonia, Recurrent Gastrointestinal History: Reports: None, Cholelithiasis Genitourinary History: Reports: UTI, Recurrent [employer] EMPL[employer]MENT History: Reports: Endometriosis, Polycystic Ovaries, Other [employer] EMPL[employer]MENT History: Mirena IUD in place Musculoskeletal History: Reports: Back Pain, Chronic, Fracture Neurological History: Reports: Seizure Other Neuro History: epidurals for back pain. febrile seizure as child - last seizure was at 14 y.o. Psychiatric History: Reports: Anxiety, Bipolar, Depression, Hallucinations, Panic Attack, Psych Hospitalization(s), PTSD, Suicide Attempt, Suicidal Ideation, Other (See Below) Other Psychiatric History: borderline personality disorder Endocrine/Metabolic History: Reports: Diabetes, Type II, Obesity/BMI 30+ Hematologic History: Reports: Anemia, B12 Deficiency, Blood Transfusion(s) Immunologic History: Reports: Other (See Below) Other Immunologic History: prednisone injections Dermatologic History: Reports: Psoriasis - Infectious Disease History Infectious Disease History: Reports: Chicken Pox - Past Surgical History HEENT Surgical History: Reports: Myringotomy w Tube(s), Oral Surgery Cardiovascular Surgical History: Reports: Vascular Surgery Other Cardiovascular Surgeries/Procedures: ablation's x 4 Respiratory Surgical History: Reports: None GI Surgical History: Reports: Cholecystectomy Female Surgical History: Reports: Other (See Below) Other Female Surgeries/Procedures: cyst removed from ovary Neurological Surgical History: Reports: None Other Neurological Surgeries/Procedures: pt is scheduled for a discectomy Musculoskeletal Surgical History: Reports: None Other Musculoskeletal Surgeries/Procedures:: prednisone epidural injections Dermatological Surgical History: Reports: None Social & Family History - Family History Family Medical History: No Pertinent Family History Cardiac: Reports: High Cholesterol, Hypertension Other GI Family History: Osmani suffers from microscopic colitis OBGYN: Reports: Dysfunctional uterine bleeding, Endometriosis Endocrine/Metabolic: Reports: Diabetes, type II Oncologic: Reports: Esophageal - Tobacco Use Tobacco Use Status *Q: Current Some Day Tobacco User Years of Tobacco use: 15 Packs/Tins Daily: 0.2 Used Tobacco, but Quit: No Second Hand Smoke Exposure: No - Caffeine Use Caffeine Use: Reports: Soda - Recreational Drug Use Recreational Drug Use: No - Living Situation & Occupation Living situation: Reports: Single, with Family Occupation: Disabled (lives with Boyfriend Eric, and her 8 year old daughter) ED ROS ENT - Review of Systems Review Of Systems: See Below Constitutional: Reports: No Symptoms HEENT: Reports: Other (apparent L jaw pain) Respiratory: Reports: No Symptoms Cardiovascular: Reports: No Symptoms GI/Abdominal: Reports: No Symptoms Musculoskeletal: Reports: No Symptoms Skin: Reports: No Symptoms Neurological: Reports: No Symptoms ED EXAM, ENT - Physical Exam Exam: See Below Exam Limited By: No Limitations General Appearance: Alert, WD/WN, No Apparent Distress, Obese Eye Exam: Bilateral Eye: Normal Inspection Ears: Normal External Exam, Normal Canal, Hearing Grossly Normal, Normal TMs Nose: Normal Inspection, No Blood Mouth/Throat: Normal Inspection, Normal Lips, Normal Oropharynx, Other (L TMJ pain with pressure over tragus while she opens/closes her mouth. Not tender on right side. ). No: Dental Pain, Hoarse Voice, Throat Pain Head: Atraumatic, Normocephalic. No: Scalp Tenderness, Facial Swelling Neck: Normal Inspection. No: Lymphadenopathy (R), Lymphadenopathy (L) Neurological: Alert, Oriented, CN II-XII Intact, Normal Cognition, No Motor/Sensory Deficits Psychiatric: Normal Affect, Normal Mood Skin: Warm, Dry, Intact, Normal Color, No Rash Course - Vital Signs Last Recorded V/S: Last Vital Signs Temp 35.7 C L 04/30/20 11:09 Pulse 73 04/30/20 11:09 Resp 14 04/30/20 11:09 BP 133/69 04/30/20 11:09 Pulse Ox 95 04/30/20 11:09 Departure - Departure Time of Disposition: 11:35 Disposition: Home, Self-Care 01 Condition: Good Clinical Impression: Left temporomandibular joint disorder, unspecified - Discharge Information *PRESCRIPTION DRUG MONITORING PROGRAM REVIEWED*: Not Applicable *COPY OF PRESCRIPTION DRUG MONITORING REPORT IN PATIENT [place]: Not Applicable Instructions: Temporomandibular Joint Syndrome Referrals: Ifrah Lorenzo PA [Primary Care Provider] - Additional Instructions: Take ibuprofen 600 mg every 6 hrs with food. Avoid talking, gum chewing or opening your mouth wide. Eat soft foods only for several days. Take Flexeril 30 min before bedtime. Recheck with your provider next week. Sepsis Event Note (ED) - Evaluation Sepsis Screening Result: No Definite Risk - Focused Exam Vital Signs: Vital Signs Temp Pulse Resp BP Pulse Ox 04/30/20 11:09 35.7 C L 73 14 133/69 95 04/30/20 10:45 35.7 C L 73 14 133/69 95
== END 2020-04-30 12:04 | disposition home or self-care (01) ==
LOC: JP.ED 10:26
DX: M26.602 Left temporomandibular joint disorder, unspecified (principal); J45.909 Unspecified asthma, uncomplicated; E11.9 Type 2 diabetes mellitus without complications; E66.9 Obesity, unspecified; Z68.41 Body mass index [BMI] 40.0-44.9, adult; Z72.0 Tobacco use; Z91.048 Other nonmedicinal substance allergy status; Z88.8 Allergy status to other drugs, medicaments and biological substances; Z79.899 Other long term (current) drug therapy; Z79.84 Long term (current) use of oral hypoglycemic drugs
CPT/HCPCS: 99283

== ENCOUNTER 2020-11-13 20:15 | Emergency (ER) | payer MEDICAID ==
--- NOTE | 2020-11-13 21:16 | EDM.PDOC ---
ED HPI GENERAL MEDICAL PROBLEM - General Chief Complaint: Fever Stated Complaint: NEGATIVE COVID 11/12 - FEVER & VOMITING STILL TODAY Time Seen by Provider: 11/13/20 20:56 Source of Information: Reports: Patient, Family, RN Notes Reviewed History Limitations: Reports: No Limitations - History of Present Illness INITIAL COMMENTS - FREE TEXT/NARRATIVE: 30-year-old female presents emergency department day complaint of shortness of breath, she has had some nausea and vomiting does produce white sputum today she is now hypoxic presenting to the emergency department. She states is been ill for the last 3 to 4 days was evaluated in the clinic a couple of days ago on the second she had a Covid test which was negative. Has tried antiemetic pills which helped she does have a history of asthma but has not used her inhaler because it is . Has had fevers at home. - Related Data Allergies Allergy/AdvReac Type Severity Reaction Status Date / Time cat dander Allergy Severe Anaphylactic Verified 11/13/20 20:34 Shock cyclobenzaprine HCl AdvReac Intermediate Nausea Verified 11/13/20 20:34 [From Flexeril] red dye AdvReac Intermediate Vomiting Verified 11/13/20 20:34 Home Meds: Home Meds Metoprolol Succinate [Toprol XL] 2 tab PO DAILY 06/03/15 [History] Albuterol [Ventolin HFA] 2 inh PO ASDIRECTED PRN 03/14/16 [History] Sertraline HCl 2 tab PO BEDTIME 03/21/18 [History] Liraglutide [Victoza] 1.8 ml SQ DAILY 09/10/19 [History] glipiZIDE [Glucotrol] 1 tab PO BID 11/27/19 [History] Cholecalciferol (Vitamin D3) [Vitamin D] 5,000 unit PO DAILY 11/13/20 [History] Empagliflozin [Jardiance] 10 mg PO DAILY 11/13/20 [History] Ondansetron [Zofran ODT] 1 tab SL Q8H PRN 11/13/20 [History] clonazePAM [Clonazepam] 1 tab PO DAILY PRN 11/13/20 [History] methocarbamoL [Methocarbamol] 500 - 1,000 mg PO BEDTIME PRN 11/13/20 [History] Past Medical History HEENT History: Reports: Allergic Rhinitis, Impaired Vision Cardiovascular History: Reports: Arrhythmia, Other (See Below) Other Cardiovascular History: vascular tacycardia Respiratory History: Reports: Asthma, Pneumonia, Recurrent Gastrointestinal History: Reports: Cholelithiasis Genitourinary History: Reports: UTI, Recurrent [employer]INE[employer]ING [employer] History: Reports: Endometriosis, Polycystic Ovaries, Other ENGINE[employer]ING [employer]DEL [employer] History: Mirena IUD in place Musculoskeletal History: Reports: Back Pain, Chronic, Fracture, Fibromyalgia Neurological History: Reports: Seizure Other Neuro History: epidurals for back pain. febrile seizure as child - last seizure was at 14 y.o. Psychiatric History: Reports: Anxiety, Bipolar, Depression, Hallucinations, Panic Attack, Psych Hospitalization(s), PTSD, Suicide Attempt, Suicidal Ideation, Other (See Below) Other Psychiatric History: borderline personality disorder Endocrine/Metabolic History: Reports: Diabetes, Type II, Obesity/BMI 30+ Hematologic History: Reports: Anemia, B12 Deficiency, Blood Transfusion(s) Immunologic History: Reports: Other (See Below) Other Immunologic History: prednisone injections Dermatologic History: Reports: Psoriasis - Infectious Disease History Infectious Disease History: Reports: Chicken Pox, Influenza - Past Surgical History HEENT Surgical History: Reports: Myringotomy w Tube(s), Oral Surgery Cardiovascular Surgical History: Reports: Vascular Surgery Other Cardiovascular Surgeries/Procedures: ablation's x 4 Respiratory Surgical History: Reports: None GI Surgical History: Reports: Cholecystectomy Female Surgical History: Reports: Other (See Below) Other Female Surgeries/Procedures: cyst removed from ovary Musculoskeletal Surgical History: Reports: None Other Musculoskeletal Surgeries/Procedures:: prednisone epidural injections Dermatological Surgical History: Reports: None Social & Family History - Family History Family Medical History: No Pertinent Family History Cardiac: Reports: High Cholesterol, Hypertension Other GI Family History: Osmani suffers from microscopic colitis OBGYN: Reports: Dysfunctional uterine bleeding, Endometriosis Endocrine/Metabolic: Reports: Diabetes, type II Oncologic: Reports: Esophageal - Tobacco Use Tobacco Use Status *Q: Light Tobacco User Years of Tobacco use: 12 Packs/Tins Daily: 0.1 - Caffeine Use Caffeine Use: Reports: Soda - Recreational Drug Use Recreational Drug Use: No - Living Situation & Occupation Living situation: Reports: Single, with Family Occupation: Disabled (lives with Boyfriend Eric, and her 8 year old daughter) ED ROS GENERAL - Review of Systems Review Of Systems: See Below Constitutional: Reports: Fever, Chills HEENT: Reports: No Symptoms Respiratory: Reports: Shortness of Breath, Wheezing, Cough, Sputum Cardiovascular: Reports: Dyspnea on Exertion GI/Abdominal: Reports: Nausea, Vomiting ED EXAM, GI/ABD - Physical Exam Exam: See Below Exam Limited By: No Limitations General Appearance: Alert, WD/WN, No Apparent Distress Respiratory/Chest: No Respiratory Distress, Chest Non-Tender, Decreased Breath Sounds, Wheezing Cardiovascular: Regular Rate, Rhythm, No Murmur GI/Abdominal Exam: Soft, Non-Tender Course - Vital Signs Last Recorded V/S: Last Vital Signs Temp 99.6 F 11/13/20 20:34 Pulse 72 11/13/20 22:41 Resp 20 11/13/20 22:41 BP 111/66 11/13/20 22:41 Pulse Ox 94 L 11/13/20 22:41 - Orders/Labs/Meds Orders: Active Orders 24 hr Category Date Time Status RT Aerosol Therapy [RC] ASDIRECTED Care 11/13/20 22:34 Active Chest 2V [CR] Urgent Exams 11/13/20 21:12 Taken Labs: Laboratory Tests 11/13/20 11/13/20 11/13/20 Range/Units 21:21 21:21 21:21 WBC 7.5 (4.5-11.0) K/uL RBC 4.81 (3.30-5.50) M/uL Hgb 14.2 (12.0-15.0) g/dL Hct 44.6 (36.0-48.0) % MCV 93 (80-98) fL MCH 30 (27-31) pg MCHC 32 (32-36) % Plt Count 172 (150-400) K/uL Neut % (Auto) 44.6 (36-66) % Lymph % (Auto) 43.2 (24-44) % Gulf % (Auto) 10.2 H (2-6) % Eos % (Auto) 1.2 L (2-4) % Baso % (Auto) 0.8 (0-1) % Sodium 141 (140-148) mmol/L Potassium 4.1 (3.6-5.2) mmol/L Chloride 105 (100-108) mmol/L Carbon Dioxide 27 (21-32) mmol/L Anion Gap 8.6 (5.0-14.0) mmol/L BUN 5 L (7-18) mg/dL Creatinine 0.8 (0.6-1.0) mg/dL Est Cr Clr Drug Dosing 94.51 mL/min Estimated GFR (MDRD) > 60 (>60) Glucose 206 H (74-106) mg/dL Lactic Acid 1.7 (0.4-2.0) mmol/L Calcium 8.3 L (8.5-10.1) mg/dL Total Bilirubin 0.3 (0.2-1.0) mg/dL AST 49 H (15-37) U/L ALT 72 (12-78) U/L Alkaline Phosphatase 118 H (46-116) U/L Troponin I < 0.017 (0.000-0.056) ng/mL Total Protein 6.0 L (6.4-8.2) g/dL Albumin 2.9 L (3.4-5.0) g/dL Globulin 3.1 (2.3-3.5) g/dL Albumin/Globulin Ratio 0.9 L (1.2-2.2) Procalcitonin ng/mL 11/13/20 Range/Units 21:21 WBC (4.5-11.0) K/uL RBC (3.30-5.50) M/uL Hgb (12.0-15.0) g/dL Hct (36.0-48.0) % MCV (80-98) fL MCH (27-31) pg MCHC (32-36) % Plt Count (150-400) K/uL Neut % (Auto) (36-66) % Lymph % (Auto) (24-44) % Gulf % (Auto) (2-6) % Eos % (Auto) (2-4) % Baso % (Auto) (0-1) % Sodium (140-148) mmol/L Potassium (3.6-5.2) mmol/L Chloride (100-108) mmol/L Carbon Dioxide (21-32) mmol/L Anion Gap (5.0-14.0) mmol/L BUN (7-18) mg/dL Creatinine (0.6-1.0) mg/dL Est Cr Clr Drug Dosing mL/min Estimated GFR (MDRD) (>60) Glucose (74-106) mg/dL Lactic Acid (0.4-2.0) mmol/L Calcium (8.5-10.1) mg/dL Total Bilirubin (0.2-1.0) mg/dL AST (15-37) U/L ALT (12-78) U/L Alkaline Phosphatase (46-116) U/L Troponin I (0.000-0.056) ng/mL Total Protein (6.4-8.2) g/dL Albumin (3.4-5.0) g/dL Globulin (2.3-3.5) g/dL Albumin/Globulin Ratio (1.2-2.2) Procalcitonin < 0.05 ng/mL Meds: Medications Discontinued Medications Generic Name Dose Route Start Last Admin Trade Name Freq PRN Reason Stop Dose Admin Albuterol/Ipratropium 3 ml 11/13/20 22:34 11/13/20 22:40 Albuterol/Ipratropium 3.0-0.5 Mg/3 Ml Neb Soln NEB 11/13/20 22:35 3 ml ONETIME ONE Administration Departure - Departure Time of Disposition: 23:03 Disposition: Home, Self-Care 01 Condition: Fair Clinical Impression: Mild intermittent asthma with exacerbation - Discharge Information Instructions: Asthma, Adult Referrals: Ifrah Lorenzo PA [Primary Care Provider] - Forms: ED Department Discharge Additional Instructions: Take full course of antibiotics, take full course of prednisone, use your albuterol inhaler as needed for shortness of breath symptoms. Please follow-up with your primary care in the next 1 to 2 days for reevaluation call return to the emergency department for worsening of symptoms Sepsis Event Note (ED) - Evaluation Sepsis Screening Result: No Definite Risk - Focused Exam Vital Signs: Vital Signs Temp Pulse Resp BP Pulse Ox 11/13/20 22:41 72 20 111/66 94 L 11/13/20 22:39 75 93/63 96 11/13/20 21:20 79 107/61 92 L 11/13/20 20:46 92 L 11/13/20 20:45 80 20 85 L 11/13/20 20:34 99.6 F 85 16 122/70 88 L 11/13/20 20:33 99.6 F 85 16 122/70 88 L - My Orders Last 24 Hours: My Active Orders 11/13/20 21:12 Chest 2V [CR] Urgent 08/03/21 22:34 RT Aerosol Therapy [RC] ASDIRECTED - Assessment/Plan Last 24 Hours: My Active Orders 11/13/20 21:12 Chest 2V [CR] Urgent 11/13/20 22:34 RT Aerosol Therapy [RC] ASDIRECTED Plan: Assessment Acuity = acute Site and laterality = asthma exacerbation mild intermittent Etiology = unknown Manifestations = hypoxia Location of injury = Home Lab values = CBC CMP unremarkable lactic acid within normal limits troponin was negative procalcitonin negative chest x-ray I did review films myself I cannot appreciate any acute process, the official read from radiology is pending Plan She had good improvement with the albuterol neb provided I did talk to her about hospitalization as she still will become slightly hypoxic [id number] she declined would like to try outpatient treatment first. Therefore will place her on prednisone 40 mg once a day for 5 days short course of antibiotics with azithromycin and a new albuterol inhaler that she will use when she feels short of breath follow-up primary care 1 to 2 days for reevaluation This note was dictated using [employer] voice recognition software please call with any questions on syntax or grammar.
[2020-11-13] MEDS ORDERED: Albuterol/Ipratropium 3.0-0.5 MG/3 ML Neb Soln NEB ONE (22:34)
[2020-11-13 22:41] VITALS: BP 111/66; PULSE 72
--- NOTE | 2020-11-14 09:45 | CR ---
CHEST: 2 view CLINICAL HISTORY:SOB COMPARISON:2018 FINDINGS: Heart size and pulmonary vasculature are normal. There are some streaky density in the infrahilar regions bilaterally which is new since prior study. There is ill-definition of the left heart margin. Lingular infiltrate is suspected. Right-sided density may be some patchy atelectasis or scarring. IMPRESSION: Patchy lingular density is suspect for lingular pneumonia Streaky density in the right middle lobe may be some scarring and/or atelectasis. Infiltrate is felt less likely
== END 2020-11-13 23:15 | disposition home or self-care (01) ==
LOC: JP.ED 20:15
DX: J45.21 Mild intermittent asthma with (acute) exacerbation (principal); E11.9 Type 2 diabetes mellitus without complications; E66.9 Obesity, unspecified; Z68.38 Body mass index [BMI] 38.0-38.9, adult; Z72.0 Tobacco use; Z91.048 Other nonmedicinal substance allergy status; Z88.8 Allergy status to other drugs, medicaments and biological substances; Z79.84 Long term (current) use of oral hypoglycemic drugs; Z79.899 Other long term (current) drug therapy
CPT/HCPCS: 36415; 71046; 71046-26; 80053; 83605; 84145; 84484; 85025; 94640; 99285-25; J7620-GY

== ENCOUNTER 2021-06-17 14:06 | Emergency (ER) | payer MEDICAID ==
[2021-06-17 14:16] VITALS: BP 136/71; PULSE 119
[2021-06-17] MEDS ORDERED: LORazepam 2 MG/ML SDV IVPUSH ONE (14:28)
[2021-06-17] MEDS ORDERED: Sodium Chloride 0.9% 10 ML Syringe FLUSH PRN (14:28)
[2021-06-17] MEDS ORDERED: Lactated Ringers 1,000 ML IV SCH (15:00)
[2021-06-17 15:52] LABS: CORONAVIRUS COVID-19 NAA NEGATIVE (NEGATIVE)
[2021-06-17] MEDS ORDERED: Ondansetron 4 MG/2 ML SDV IVPUSH ONE (16:16)
== END 2021-06-17 17:38 | disposition home or self-care (01) ==
LOC: JP.ED 14:06
DX: R11.2 Nausea with vomiting, unspecified (principal); E11.9 Type 2 diabetes mellitus without complications; E66.9 Obesity, unspecified; Z68.35 Body mass index [BMI] 35.0-35.9, adult; Z91.041 Radiographic dye allergy status; Z88.8 Allergy status to other drugs, medicaments and biological substances; Z91.09 Other allergy status, other than to drugs and biological substances; Z79.4 Long term (current) use of insulin; Z72.0 Tobacco use; Z20.822 Contact with and (suspected) exposure to COVID-19
CPT/HCPCS: 0241U; 36415; 80053; 81001; 81025; 82009; 83605; 83690; 85025; 87086; 96374; 96375; 99282; 99284-25; J2060; J2405; J7120

== ENCOUNTER 2021-10-09 10:30 | Emergency (ER) | payer MEDICAID ==
[2021-10-09] MEDS ORDERED: HYDROmorphone 1 MG/ML Syringe IM ONE (11:29)
[2021-10-09 11:48] VITALS: BP 105/57; PULSE 61
[2021-10-09] MEDS ORDERED: HYDROmorphone 2 MG Tab PO ONE ×2 (18:06→18:08)
[2021-10-09] MEDS ORDERED: HYDROmorphone 2 MG Tab ONE (19:09)
== END 2021-10-09 12:22 | disposition home or self-care (01) ==
LOC: JP.ED 10:30
DX: G89.29 Other chronic pain (principal); M54.50 Low back pain, unspecified; E11.9 Type 2 diabetes mellitus without complications; E66.9 Obesity, unspecified; Z68.37 Body mass index [BMI] 37.0-37.9, adult; Z91.041 Radiographic dye allergy status; Z88.8 Allergy status to other drugs, medicaments and biological substances
CPT/HCPCS: 96372; 99283; 99284; A9270; J1170

== ENCOUNTER 2021-10-16 13:29 | Emergency (ER) | payer MEDICAID ==
[2021-10-16] MEDS ORDERED: Sodium Chloride 0.9% 1,000 ML IV SCH (14:45)
[2021-10-16 15:31] LABS: ESTIMATED GFR 100 mL/min (>60)
[2021-10-16 15:49] LABS: CORONAVIRUS COVID-19 NAA POSITIVE (NEGATIVE)
[2021-10-16 15:57] VITALS: BP 92/56; PULSE 69
[2021-10-16] MEDS ORDERED: cefTRIAXone 1 GM in Sodium Chloride 0.9% 50 ML IV ONE (16:28)
== END 2021-10-16 17:42 | disposition home or self-care (01) ==
LOC: JP.ED 13:29
DX: U07.1 COVID-19 (principal); N30.00 Acute cystitis without hematuria; Z79.899 Other long term (current) drug therapy; Z88.8 Allergy status to other drugs, medicaments and biological substances
CPT/HCPCS: 0241U; 36415; 80053; 81001; 83605; 84145; 85025; 86618; 87086; 87088; 96361; 96365; 99284; J0696; J7030

== ENCOUNTER 2021-11-19 15:23 | Emergency (ER) | payer MEDICAID ==
[2021-11-19 16:02] VITALS: BP 133/86; PULSE 92
== END 2021-11-19 15:30 | disposition left against medical advice (07) ==
LOC: JP.ED 15:23
DX: Z53.21 Procedure and treatment not carried out due to patient leaving prior to being seen by health care provider (principal)

== ENCOUNTER 2022-12-23 18:58 | Emergency (ER) | payer MEDICAID ==
[2022-12-23 19:16] VITALS: BP 141/55; PULSE 55
== END 2022-12-23 20:54 | disposition home or self-care (01) ==
LOC: JP.ED 18:58
DX: K52.9 Noninfective gastroenteritis and colitis, unspecified (principal); R11.2 Nausea with vomiting, unspecified; E66.9 Obesity, unspecified; Z68.36 Body mass index [BMI] 36.0-36.9, adult; Z88.0 Allergy status to penicillin; Z91.041 Radiographic dye allergy status; Z91.09 Other allergy status, other than to drugs and biological substances; Z88.8 Allergy status to other drugs, medicaments and biological substances; Z72.0 Tobacco use; Z20.822 Contact with and (suspected) exposure to COVID-19
CPT/HCPCS: 99284; U0002

== ENCOUNTER 2023-05-11 19:27 | Inpatient (IN) | payer MEDICAID ==
[2023-05-11] MEDS ORDERED: Metoprolol Tartrate 5 MG/5 ML SDV IVPUSH ONE (19:40)
[2023-05-11] MEDS ORDERED: Sodium Chloride 0.9% 1,000 ML IV ONE (19:43)
[2023-05-11 19:51] LABS: HEMATOCRIT 42.7 % (34.3-46.0); MEAN CORPUSCULAR HEMOGLOBIN 30.6 pg (31.6-35.5); MEAN CORPUSCULAR HGB CONC 32.8 g/dL (31.6-35.5); MEAN CORPUSCULAR VOLUME 93.4 fL (81.4-99.0); PLATELET COUNT,PLT 209 K/uL (130-375); RED BLOOD CELL COUNT 4.57 M/uL (3.77-5.24); WHITE BLOOD CELL COUNT,WBC 10.9 K/uL (3.2-11.0)
[2023-05-11] MEDS ORDERED: Ondansetron 4 MG/2 ML SDV IVPUSH ONE ×2 (19:52→20:32)
[2023-05-11 20:02] LABS: A/G RATIO 0.5 (1.2-2.2); ALANINE AMINOTRANSFERASE,ALT 86 U/L (12-78); ALBUMIN 2.3 g/dL (3.4-5.0); ALKALINE PHOSPHATASE 91 U/L (46-116); ASPARTATE AMNIOTRANSFERASE,AST 54 U/L (15-37); BILIRUBIN TOTAL 1.9 mg/dL (0.2-1.0); BLOOD UREA NITROGEN,BUN 9 mg/dL (7-18); CALCIUM 8.8 mg/dL (8.5-10.1); CARBON DIOXIDE,CO2 25 mmol/L (21-32); CHLORIDE,CL 95 mmol/L (100-108); CREATININE 0.9 mg/dL (0.6-1.0); EST CRCL DRUG DOSING (CG) 79.25 mL/min; ESTIMATED GFR 86 mL/min (>60); GLUCOSE RANDOM 259 mg/dL (74-106); POTASSIUM,K 3.6 mmol/L (3.6-5.2); PROTEIN TOTAL,TP 6.9 g/dL (6.4-8.2); SODIUM,NA 133 mmol/L (140-148)
[2023-05-11 20:03] LABS: ANION GAP 16.6 mmol/L (5.0-14.0)
[2023-05-11 20:09] LABS: BAND ABSOLUTE MAN 1.74 K/uL; BAND PERCENT MAN 16 % (5-11); LYMPHOCYTES ABSOLUTE MAN 2.83 K/uL (0.8-3.3); LYMPHOCYTES PERCENT MAN 26 % (24-44); METAMYELOCYTE ABSOLUTE MAN 0.11 K/uL; METAMYELOCYTE PERCENT MAN 1 %; MONOCYTES ABSOLUTE MAN 0.55 K/uL (0.20-0.90); MONOCYTES PERCENT MAN 5 % (2-6); NEUTROPHILS ABSOLUTE MAN 5.67 K/uL (1.0-7.6); SEG NEUTROPHILS PERCENT MAN 52 % (36-66)
[2023-05-11 21:01] LABS: CORONAVIRUS COVID-19 NAA NEGATIVE (NEGATIVE); INFLUENZA A NAA NEGATIVE (NEGATIVE); INFLUENZA B NAA NEGATIVE (NEGATIVE); RESPIRATORY SYNCYTIAL VIR NAA NEGATIVE (NEGATIVE)
[2023-05-11 21:40] LABS: APPEARANCE,URINE CLOUDY (CLEAR); BILIRUBIN,URINE MODERATE (NEGATIVE); COLOR,URINE YELLOW (YELLOW); GLUCOSE,URINE 500 mg/dL (NEGATIVE); KETONES,URINE 80 mg/dL (NEGATIVE); LEUKOCYTE ESTERASE,URINE NEGATIVE (NEGATIVE); NITRITE,URINE NEGATIVE (NEGATIVE); OCCULT BLOOD,URINE MODERATE (NEGATIVE); PROTEIN,URINE >=300 mg/dL (NEGATIVE)
[2023-05-11 21:51] LABS: AMORPHOUS SEDIMENT,URINE NOT SEEN; BACTERIA,URINE MANY; EPITHELIAL CELLS,URINE MODERATE; MUCUS,URINE MODERATE; WBC,URINE 20-30 (0-5)
[2023-05-11] MEDS ORDERED: cefTRIAXone 1 GM in Sodium Chloride 0.9% 50 ML IV ONE (21:59)
[2023-05-11] MEDS ORDERED: Iopamidol 612 MG/ML 100 ML Bottle IV SCH (22:00)
[2023-05-11] MEDS ORDERED: Sodium Chloride 0.9% 50 ML IV SCH (22:00)
[2023-05-11] MEDS ORDERED: Ondansetron 4 MG Tab.DIS PO PRN (22:45)
[2023-05-11] MEDS ORDERED: Sennosides/Docusate Sodium 50-8.6 MG Tab PO PRN (22:45)
[2023-05-11] MEDS ORDERED: Magnesium Hydroxide 400 MG/5 ML Susp 30 ML Cup PO PRN (22:45)
[2023-05-11] MEDS ORDERED: Sodium Chloride 0.9% 1,000 ML IV SCH (22:45)
[2023-05-11] MEDS ORDERED: LORazepam 2 MG/ML SDV IVPUSH PRN (22:45)
[2023-05-11] MEDS ORDERED: Acetaminophen 325 MG Tab PO PRN (22:45)
[2023-05-11] MEDS ORDERED: oxyCODONE 5 MG Tab PO PRN (22:45)
[2023-05-11] MEDS ORDERED: Ondansetron 4 MG/2 ML SDV IV PRN (22:45)
[2023-05-11] MEDS ORDERED: Piperacillin/Tazobactam 4.5 GM in Sodium Chloride 0.9% 100 ML IV SCH (23:00)
[2023-05-11] MEDS ORDERED: Diltiazem 100 MG in Sodium Chloride 0.9% 100 ML IV SCH (23:00)
[2023-05-11] MEDS ORDERED: Clindamycin in 0.9 % Sod Chlor 600 MG in Premix Bag 1 BAG IV ONE ×2 (23:55)
[2023-05-12] MEDS ORDERED: Meropenem 1 GM in Sodium Chloride 0.9% 100 ML IV SCH ×2
[2023-05-12] MEDS ORDERED: Bupivacaine 0.5% 50 ML MDV ONE (00:33)
[2023-05-12] MEDS ORDERED: Lidocaine 1% with EPINEPHrine 1:100,000 50 ML MDV ONE (00:33)
[2023-05-12] MEDS ORDERED: fentaNYL 100 MCG/2 ML SDV ONE (00:41)
[2023-05-12] MEDS ORDERED: Propofol 200 MG/20 ML SDV ONE ×2 (00:41→02:01)
[2023-05-12] MEDS ORDERED: Midazolam 1 MG/ML 2 ML SDV ONE (00:41)
[2023-05-12] MEDS ORDERED: Vancomycin 2 GM in Sodium Chloride 0.9% 500 ML IV ONE (01:00)
[2023-05-12] MEDS ORDERED: Labetalol 20 MG/4 ML Syringe ONE (01:42)
[2023-05-12] MEDS ORDERED: Etomidate 2 MG/ML 10 ML SDV ONE (02:02)
[2023-05-12] MEDS ORDERED: propofoL 100 ML ONE (02:14)
[2023-05-12] MEDS ORDERED: propofoL 100 ML IV SCH (02:23)
[2023-05-12] MEDS ORDERED: Heparin Sodium 5,000 UNITS in Sodium Chloride 0.9% 500 ML IARTER SCH (02:23)
[2023-05-12] MEDS ORDERED: Heparin Sodium 5,000 Units/ML Vial ONE (02:23)
[2023-05-12] MEDS ORDERED: Sodium Chloride 0.9% 500 ML IV ONE (02:45)
[2023-05-12] MEDS ORDERED: Norepinephrine 4 MG/4 ML SDV ONE (02:49)
[2023-05-12] MEDS ORDERED: Norepinephrine Bit/D5W Premix 4 MG in Premix Bag 1 BAG IV SCH (03:09)
[2023-05-12 05:43] VITALS: BP 84/49; PULSE 102
[2023-05-12] MEDS ORDERED: Insulin Lispro 100 Unit/ML 3 ML KwikPen SUBCUT SCH (07:00)
[2023-05-12] MEDS ORDERED: cefTRIAXone 1 GM in Sodium Chloride 0.9% 50 ML IV SCH (09:00)
[2023-05-12] MEDS ORDERED: Insulin Glargine,Human Rec. Analog 100 Units/ML 3 ML Pen SUBCUT SCH (09:00)
[2023-05-12] MEDS ORDERED: Enoxaparin 40 MG/0.4 ML Syringe SUBCUT SCH (09:00)
[2023-05-12] MEDS ORDERED: Melatonin 3 MG Tab PO SCH (21:00)
== END 2023-05-12 05:12 | DRG 871 ==
LOC: JP.ED 19:27 → JP.ICU 22:19
PROVIDERS: ADMIT Hospitalist; ATTEND Hospitalist
PROC: 0J9M0ZZ Drainage of Left Upper Leg Subcutaneous Tissue and Fascia, Open Approach (ICD-10-PCS; principal; 2023-05-11)
DX: A41.9 Sepsis, unspecified organism (principal); M72.6 Necrotizing fasciitis; N39.0 Urinary tract infection, site not specified; L03.116 Cellulitis of left lower limb; Z68.41 Body mass index [BMI] 40.0-44.9, adult; I48.91 Unspecified atrial fibrillation; E11.9 Type 2 diabetes mellitus without complications; E86.0 Dehydration; R65.20 Severe sepsis without septic shock; J45.909 Unspecified asthma, uncomplicated; M19.90 Unspecified osteoarthritis, unspecified site; G89.29 Other chronic pain; M54.9 Dorsalgia, unspecified; M79.7 Fibromyalgia; F41.9 Anxiety disorder, unspecified; F17.210 Nicotine dependence, cigarettes, uncomplicated; F32.A Depression, unspecified; F43.10 Post-traumatic stress disorder, unspecified; F60.3 Borderline personality disorder; E66.9 Obesity, unspecified; Z98.890 Other specified postprocedural states; Z87.01 Personal history of pneumonia (recurrent); Z79.51 Long term (current) use of inhaled steroids; Z79.899 Other long term (current) drug therapy; Z88.8 Allergy status to other drugs, medicaments and biological substances; Z88.0 Allergy status to penicillin; Z91.041 Radiographic dye allergy status; Z87.440 Personal history of urinary (tract) infections; Z11.52 Encounter for screening for COVID-19
CPT/HCPCS: 0241U; 36415; 71045; 71045-26; 74177; 80053; 81001; 81025; 83605; 84145; 85025; 87070; 87075; 87077; 87186; 87205; 93005; 94002; 96361; 96374; 96375; 96376; 99223; 99239; 99285-25; A9270-GY; J0696; J1644; J1815; J1815-GY; J1920; J2185; J2250; J2405; J2704; J3010; J3370; J3490; J7030; J7040; Q9967

== ENCOUNTER 2023-07-13 14:33 | Emergency (ER) | payer MEDICAID ==
[2023-07-13 15:15] LABS: BASOPHILS PERCENT AUTO 0.2 % (0.1-1.3); EOSINOPHILS ABSOLUTE AUTO 0.15 K/uL (0.00-0.40); EOSINOPHILS PERCENT AUTO 2.6 % (0.0-5.4); HEMATOCRIT 40.3 % (34.3-46.0); HEMOGLOBIN 12.3 g/dL (11.2-15.5); IMMATURE GRAN PERCENT AUTO 0.2 % (0.0-0.7); LYMPHOCYTES ABSOLUTE AUTO 2.41 K/uL (0.8-3.3); MEAN CORPUSCULAR HEMOGLOBIN 28.1 pg (31.6-35.5); MEAN CORPUSCULAR HGB CONC 30.5 g/dL (31.6-35.5); MEAN CORPUSCULAR VOLUME 92.2 fL (81.4-99.0); MONOCYTES ABSOLUTE AUTO 0.63 K/uL (0.20-0.90); NEUTROPHILS ABSOLUTE AUTO 2.53 K/uL (1.0-7.6); PLATELET COUNT,PLT 239 K/uL (130-375); RED BLOOD CELL COUNT 4.37 M/uL (3.77-5.24); WHITE BLOOD CELL COUNT,WBC 5.7 K/uL (3.2-11.0)
[2023-07-13 15:19] LABS: BASOPHILS ABSOLUTE AUTO 0.01 K/uL (0.00-0.10); IMMATURE GRAN ABSOLUTE AUTO 0.01 K/uL (0.00-0.23)
[2023-07-13 15:37] LABS: PROTHROMBIN TIME 10.6 sec (9.2-10.6)
[2023-07-13 15:47] LABS: A/G RATIO 0.9 (1.2-2.2); ALANINE AMINOTRANSFERASE,ALT 98 U/L (12-78); ALKALINE PHOSPHATASE 128 U/L (46-116); ANION GAP 9.3 mmol/L (5.0-14.0); ASPARTATE AMNIOTRANSFERASE,AST 44 U/L (15-37); BILIRUBIN TOTAL 0.5 mg/dL (0.2-1.0); BLOOD UREA NITROGEN,BUN 5 mg/dL (7-18); CALCIUM 8.9 mg/dL (8.5-10.1); CARBON DIOXIDE,CO2 31 mmol/L (21-32); CHLORIDE,CL 107 mmol/L (100-108); CREATININE 0.4 mg/dL (0.6-1.0); ESTIMATED GFR 132 mL/min (>60); GLUCOSE RANDOM 109 mg/dL (74-106); POTASSIUM,K 3.6 mmol/L (3.6-5.2); PROTEIN TOTAL,TP 6.4 g/dL (6.4-8.2); SODIUM,NA 147 mmol/L (140-148); TROPONIN I HIGH SENSITIVITY 43.2 pg/mL (<=60.3); TSH ULTRASENSITIVE 1.207 uIU/mL (0.358-3.740)
[2023-07-13] MEDS: Morphine 2 MG/ML SYRINGE IM ONE (16:00)
[2023-07-13] MEDS: Sodium Chloride 0.9% 50 ML IV SCH (17:51)
[2023-07-13] MEDS: Iopamidol 612 MG/ML 150 ML Bottle IV SCH (17:52)
[2023-07-13 18:36] VITALS: BP 107/58; PULSE 83
[2023-07-13 20:34] LABS: CORONAVIRUS COVID-19 NAA NEGATIVE (NEGATIVE); INFLUENZA A NAA NEGATIVE (NEGATIVE); INFLUENZA B NAA NEGATIVE (NEGATIVE); RESPIRATORY SYNCYTIAL VIR NAA NEGATIVE (NEGATIVE)
== END 2023-07-13 21:29 | disposition home or self-care (01) ==
LOC: JP.ED 14:33
DX: M79.89 Other specified soft tissue disorders (principal); I10 Essential (primary) hypertension; E11.9 Type 2 diabetes mellitus without complications; J45.909 Unspecified asthma, uncomplicated; E66.9 Obesity, unspecified; Z91.048 Other nonmedicinal substance allergy status; Z88.1 Allergy status to other antibiotic agents; Z91.041 Radiographic dye allergy status; Z79.51 Long term (current) use of inhaled steroids; Z86.19 Personal history of other infectious and parasitic diseases; Z90.49 Acquired absence of other specified parts of digestive tract; Z68.37 Body mass index [BMI] 37.0-37.9, adult; Z79.899 Other long term (current) drug therapy
CPT/HCPCS: 0241U; 36415; 70450; 71045; 73701; 80053; 83605; 84145; 84443; 84484; 85025; 85610; 85730; 93005; 93926; 93971; 96372; 99285; J2270; J3490; Q9967

== ENCOUNTER 2023-07-17 14:09 | Inpatient (IN) | payer MEDICAID ==
[2023-07-17 14:44] LABS: BASOPHILS PERCENT AUTO 0.2 % (0.1-1.3); EOSINOPHILS ABSOLUTE AUTO 0.25 K/uL (0.00-0.40); EOSINOPHILS PERCENT AUTO 3.8 % (0.0-5.4); HEMATOCRIT 42.4 % (34.3-46.0); IMMATURE GRAN PERCENT AUTO 0.3 % (0.0-0.7); LYMPHOCYTES PERCENT AUTO 36.5 % (11.4-47.7); MEAN CORPUSCULAR HEMOGLOBIN 28.2 pg (31.6-35.5); MEAN CORPUSCULAR HGB CONC 30.7 g/dL (31.6-35.5); MONOCYTES PERCENT AUTO 9.1 % (3.3-12.6); NEUTROPHILS ABSOLUTE AUTO 3.29 K/uL (1.0-7.6); NEUTROPHILS PERCENT AUTO 50.1 % (40.0-78.1); PLATELET COUNT,PLT 230 K/uL (130-375); RED BLOOD CELL COUNT 4.61 M/uL (3.77-5.24); WHITE BLOOD CELL COUNT,WBC 6.6 K/uL (3.2-11.0)
[2023-07-17 14:45] LABS: BASOPHILS ABSOLUTE AUTO 0.01 K/uL (0.00-0.10); IMMATURE GRAN ABSOLUTE AUTO 0.02 K/uL (0.00-0.23)
[2023-07-17 14:58] LABS: APPEARANCE,URINE TURBID (CLEAR); BILIRUBIN,URINE SMALL (NEGATIVE); COLOR,URINE YELLOW (YELLOW); GLUCOSE,URINE NEGATIVE (NEGATIVE); KETONES,URINE NEGATIVE (NEGATIVE); NITRITE,URINE NEGATIVE (NEGATIVE); OCCULT BLOOD,URINE MODERATE (NEGATIVE); PH,URINE 6.5 (5.0-8.0); PROTEIN,URINE 100 mg/dL (NEGATIVE)
[2023-07-17 15:01] LABS: C-REACTIVE PROTEIN 3.37 mg/dL (<0.50); CALCIUM 9.1 mg/dL (8.5-10.1); CREATININE 0.5 mg/dL (0.6-1.0); EST CRCL DRUG DOSING (CG) 147.01 mL/min; POTASSIUM,K 3.7 mmol/L (3.6-5.2)
[2023-07-17 15:03] LABS: AMORPHOUS SEDIMENT,URINE FEW; BACTERIA,URINE MANY; EPITHELIAL CELLS,URINE FEW; MUCUS,URINE FEW; WBC,URINE >100 (0-5)
[2023-07-17 15:04] LABS: LEUKOCYTE ESTERASE,URINE LARGE (NEGATIVE)
[2023-07-17] MEDS: cefTRIAXone 1 GM in Sodium Chloride 0.9% 50 ML IV ONE (16:12)
[2023-07-17] MEDS: fentaNYL 50 MCG/ML SDV IVPUSH ONE (16:25)
[2023-07-17] MEDS: Sodium Chloride 0.9% 1,000 ML IV SCH ×2 (17:17→18:41)
[2023-07-17] MEDS: Metoprolol Tartrate 5 MG/5 ML SDV IVPUSH ONE (17:27)
[2023-07-17 17:35] LABS: CORONAVIRUS COVID-19 NAA NEGATIVE (NEGATIVE); INFLUENZA A NAA NEGATIVE (NEGATIVE); INFLUENZA B NAA NEGATIVE (NEGATIVE); RESPIRATORY SYNCYTIAL VIR NAA NEGATIVE (NEGATIVE)
[2023-07-17] MEDS ORDERED: Magnesium Hydroxide 400 MG/5 ML Susp 30 ML Cup PO PRN (17:51)
[2023-07-17] MEDS ORDERED: 50% Dextrose in Water 50 ML Syringe IVPUSH PRN (17:51)
[2023-07-17] MEDS ORDERED: Methocarbamol 500 MG Tab PO PRN (17:51)
[2023-07-17] MEDS ORDERED: Albuterol 0.083% 2.5 MG/3 ML Neb Soln NEB PRN (17:51)
[2023-07-17] MEDS ORDERED: Glucagon,Human Recombinant 1 MG Vial IM PRN (17:51)
[2023-07-17] MEDS ORDERED: Acetaminophen 325 MG Tab PO PRN ×2 (17:51→17:58)
[2023-07-17] MEDS ORDERED: HYDROmorphone 1 MG/ML Syringe IVPUSH PRN (17:51)
[2023-07-17] MEDS ORDERED: Ondansetron 4 MG Tab.DIS PO PRN (17:51)
[2023-07-17] MEDS ORDERED: Ondansetron 4 MG/2 ML SDV IV PRN (17:51)
[2023-07-17] MEDS ORDERED: Naloxone 0.4 MG/ML SDV IVPUSH PRN (17:51)
[2023-07-17] MEDS ORDERED: Sennosides/Docusate Sodium 50-8.6 MG Tab PO PRN (17:51)
[2023-07-17] MEDS: Insulin Lispro 100 Unit/ML 3 ML KwikPen SUBCUT SCH (21:25)
[2023-07-17] MEDS: Acetaminophen 500 MG Tab PO SCH (21:31)
[2023-07-17] MEDS: Gabapentin 300 MG Cap PO SCH (21:31)
[2023-07-17] MEDS: Apixaban 5 MG Tab PO SCH (21:32)
[2023-07-17] MEDS: Sotalol 80 MG Tab PO SCH (21:32)
[2023-07-17] MEDS: OLANZapine 5 MG Tab PO SCH (21:35)
[2023-07-17] MEDS: Lactobacillus Rhamnosus GG (Probiotic) Cap PO SCH (21:35)
[2023-07-17] MEDS: HYDROmorphone 2 MG Tab PO PRN (21:39)
[2023-07-18 04:37] LABS: HEMATOCRIT 39.4 % (34.3-46.0); HEMOGLOBIN 11.9 g/dL (11.2-15.5); MEAN CORPUSCULAR HGB CONC 30.2 g/dL (31.6-35.5); MEAN CORPUSCULAR VOLUME 92.7 fL (81.4-99.0); RED BLOOD CELL COUNT 4.25 M/uL (3.77-5.24); WHITE BLOOD CELL COUNT,WBC 7.6 K/uL (3.2-11.0)
[2023-07-18 05:01] LABS: A/G RATIO 0.7 (1.2-2.2); ALANINE AMINOTRANSFERASE,ALT 71 U/L (12-78); ALBUMIN 2.5 g/dL (3.4-5.0); ALKALINE PHOSPHATASE 106 U/L (46-116); ANION GAP 7.4 mmol/L (5.0-14.0); ASPARTATE AMNIOTRANSFERASE,AST 22 U/L (15-37); BILIRUBIN TOTAL 0.4 mg/dL (0.2-1.0); BLOOD UREA NITROGEN,BUN 7 mg/dL (7-18); CALCIUM 8.6 mg/dL (8.5-10.1); CARBON DIOXIDE,CO2 32 mmol/L (21-32); CHLORIDE,CL 108 mmol/L (100-108); CREATININE 0.6 mg/dL (0.6-1.0); EST CRCL DRUG DOSING (CG) 122.51 mL/min; ESTIMATED GFR 120 mL/min (>60); GLUCOSE RANDOM 145 mg/dL (74-106); MAGNESIUM 1.6 mg/dL (1.8-2.4); POTASSIUM,K 4.3 mmol/L (3.6-5.2); SODIUM,NA 147 mmol/L (140-148)
[2023-07-18] MEDS ORDERED: HYDROmorphone 0.5 MG/0.5 ML Syringe IVPUSH PRN (07:34)
[2023-07-18] MEDS ORDERED: cefTRIAXone 2 GM in Sodium Chloride 0.9% 50 ML IV SCH (08:00)
[2023-07-18] MEDS: cefTRIAXone 2 GM in Sodium Chloride 0.9% 50 ML IV SCH (08:34)
[2023-07-18] MEDS: Aspirin 81 MG Tab.EC PO SCH (08:38)
[2023-07-18] MEDS: Insulin Glargine,Human Rec. Analog 100 Units/ML 3 ML Pen SUBCUT SCH (08:40)
[2023-07-18] MEDS: Empagliflozin 25 MG Tab PO SCH (08:40)
[2023-07-18] MEDS: Magnesium Sulfate/Water 2 GM in Premix Bag 1 BAG IV SCH (09:50)
[2023-07-18] MEDS: Sodium Chloride 0.9% 1,000 ML IV SCH (11:43)
[2023-07-18] MEDS ORDERED: Gabapentin 300 MG Cap PO SCH (14:00)
[2023-07-18] MEDS: Gabapentin 400 MG Cap PO SCH (14:01)
[2023-07-18] MEDS ORDERED: Dimethicone 20%/Zinc Oxide 25% 56 GM Spray Bottle TOP PRN (14:08)
[2023-07-19] MEDS: Insulin Lispro 100 Unit/ML 3 ML KwikPen SUBCUT SCH (11:51)
[2023-07-20 04:48] LABS: HEMATOCRIT 36.7 % (34.3-46.0); HEMOGLOBIN 11.1 g/dL (11.2-15.5); MEAN CORPUSCULAR HGB CONC 30.2 g/dL (31.6-35.5); MEAN CORPUSCULAR VOLUME 92.7 fL (81.4-99.0); RED BLOOD CELL COUNT 3.96 M/uL (3.77-5.24); WHITE BLOOD CELL COUNT,WBC 5.5 K/uL (3.2-11.0)
[2023-07-20 05:04] LABS: CALCIUM 8.9 mg/dL (8.5-10.1); CREATININE 0.5 mg/dL (0.6-1.0); EST CRCL DRUG DOSING (CG) 147.01 mL/min; POTASSIUM,K 4.5 mmol/L (3.6-5.2)
[2023-07-20 05:06] LABS: ANION GAP 10.5 mmol/L (5.0-14.0)
[2023-07-20] MEDS: Insulin Glargine,Human Rec. Analog 100 Units/ML 3 ML Pen SUBCUT SCH (08:21)
[2023-07-20] MEDS: Cefdinir 300 MG Cap PO SCH (08:24)
[2023-07-23] MEDS: FLUoxetine 20 MG Cap PO SCH (13:14)
[2023-07-23] MEDS: oxyCODONE 5 MG Tab PO PRN (13:14)
[2023-07-24] MEDS: ESCITALOPRAM 10 MG PO SCH (15:56)
[2023-07-27 11:49] VITALS: BP 95/59; PULSE 59
== END 2023-07-27 13:10 | disposition home or self-care (01) | DRG 193 ==
LOC: JP.ED 14:09 → JP.MS 17:01
PROVIDERS: ADMIT Internal Medicine; ATTEND Internal Medicine
DX: J18.9 Pneumonia, unspecified organism (principal); J96.01 Acute respiratory failure with hypoxia; M72.6 Necrotizing fasciitis; N30.00 Acute cystitis without hematuria; I10 Essential (primary) hypertension; F32.A Depression, unspecified; E66.9 Obesity, unspecified; M19.90 Unspecified osteoarthritis, unspecified site; M54.9 Dorsalgia, unspecified; G89.29 Other chronic pain; J45.909 Unspecified asthma, uncomplicated; I48.91 Unspecified atrial fibrillation; H54.7 Unspecified visual loss; R29.898 Other symptoms and signs involving the musculoskeletal system; F41.1 Generalized anxiety disorder; I70.228 Atherosclerosis of native arteries of extremities with rest pain, other extremity; E11.51 Type 2 diabetes mellitus with diabetic peripheral angiopathy without gangrene; F60.3 Borderline personality disorder; Z88.0 Allergy status to penicillin; Z88.8 Allergy status to other drugs, medicaments and biological substances; Z91.041 Radiographic dye allergy status; Z79.51 Long term (current) use of inhaled steroids; Z79.899 Other long term (current) drug therapy; Z79.01 Long term (current) use of anticoagulants; Z79.4 Long term (current) use of insulin; Z68.37 Body mass index [BMI] 37.0-37.9, adult; Z87.81 Personal history of (healed) traumatic fracture; Z86.16 Personal history of COVID-19; Z98.890 Other specified postprocedural states; Z90.49 Acquired absence of other specified parts of digestive tract; Z86.79 Personal history of other diseases of the circulatory system; M79.7 Fibromyalgia; F43.10 Post-traumatic stress disorder, unspecified; Z91.51 Personal history of suicidal behavior
CPT/HCPCS: 0241U; 36415; 71045; 71045-26; 73130-26-LT; 73130-LT; 73630-26-LT; 73630-LT; 80048; 80053; 81001; 82947; 83605; 83735; 85025; 85027; 86140; 96365; 96375; 97110-GO; 97110-GP; 97116-GP; 97162-GP; 97165-GO; 97530-GP; 97535-GO; 99222; 99231; 99232; 99238; 99284; 99285-25; A9270-GY; J0696; J1815; J1815-GY; J3010; J3475; J3490; J7030

== ENCOUNTER 2023-07-29 16:58 | Emergency (ER) | payer MEDICAID ==
[2023-07-29 17:41] LABS: EOSINOPHILS ABSOLUTE AUTO 0.11 K/uL (0.00-0.40); EOSINOPHILS PERCENT AUTO 2.1 % (0.0-5.4); HEMATOCRIT 44.3 % (34.3-46.0); HEMOGLOBIN 13.6 g/dL (11.2-15.5); IMMATURE GRAN PERCENT AUTO 0.4 % (0.0-0.7); LYMPHOCYTES ABSOLUTE AUTO 2.09 K/uL (0.8-3.3); LYMPHOCYTES PERCENT AUTO 39.1 % (11.4-47.7); MEAN CORPUSCULAR HEMOGLOBIN 27.5 pg (31.6-35.5); MEAN CORPUSCULAR HGB CONC 30.7 g/dL (31.6-35.5); MEAN CORPUSCULAR VOLUME 89.7 fL (81.4-99.0); MONOCYTES ABSOLUTE AUTO 0.38 K/uL (0.20-0.90); MONOCYTES PERCENT AUTO 7.1 % (3.3-12.6); NEUTROPHILS ABSOLUTE AUTO 2.75 K/uL (1.0-7.6); NEUTROPHILS PERCENT AUTO 51.3 % (40.0-78.1); PLATELET COUNT,PLT 242 K/uL (130-375); RED BLOOD CELL COUNT 4.94 M/uL (3.77-5.24); WHITE BLOOD CELL COUNT,WBC 5.4 K/uL (3.2-11.0)
[2023-07-29 17:47] LABS: IMMATURE GRAN ABSOLUTE AUTO 0.02 K/uL (0.00-0.23)
[2023-07-29 18:13] LABS: A/G RATIO 0.9 (1.2-2.2); ALANINE AMINOTRANSFERASE,ALT 80 U/L (12-78); ALBUMIN 3.3 g/dL (3.4-5.0); ALKALINE PHOSPHATASE 137 U/L (46-116); ANION GAP 6.2 mmol/L (5.0-14.0); ASPARTATE AMNIOTRANSFERASE,AST 49 U/L (15-37); BILIRUBIN TOTAL 0.4 mg/dL (0.2-1.0); BLOOD UREA NITROGEN,BUN 14 mg/dL (7-18); CALCIUM 9.6 mg/dL (8.5-10.1); CARBON DIOXIDE,CO2 32 mmol/L (21-32); CHLORIDE,CL 105 mmol/L (100-108); CREATININE 0.5 mg/dL (0.6-1.0); EST CRCL DRUG DOSING (CG) 147.01 mL/min; ESTIMATED GFR 125 mL/min (>60); GLUCOSE RANDOM 169 mg/dL (74-106); POTASSIUM,K 4.1 mmol/L (3.6-5.2); PROTEIN TOTAL,TP 6.9 g/dL (6.4-8.2); SODIUM,NA 143 mmol/L (140-148)
[2023-07-29 18:14] LABS: TROPONIN I HIGH SENSITIVITY 80.5 pg/mL (<=60.3)
[2023-07-29] MEDS: oxyCODONE 5 MG Tab PO ONE (18:24)
[2023-07-29 18:27] VITALS: BP 124/76; PULSE 73
[2023-07-29 18:30] LABS: CORONAVIRUS COVID-19 NAA NEGATIVE (NEGATIVE); INFLUENZA A NAA NEGATIVE (NEGATIVE); INFLUENZA B NAA NEGATIVE (NEGATIVE); RESPIRATORY SYNCYTIAL VIR NAA NEGATIVE (NEGATIVE)
[2023-07-29 18:52] LABS: APPEARANCE,URINE TURBID (CLEAR); BILIRUBIN,URINE NEGATIVE (NEGATIVE); COLOR,URINE YELLOW (YELLOW); GLUCOSE,URINE NEGATIVE (NEGATIVE); KETONES,URINE NEGATIVE (NEGATIVE); LEUKOCYTE ESTERASE,URINE SMALL (NEGATIVE); NITRITE,URINE NEGATIVE (NEGATIVE); OCCULT BLOOD,URINE TRACE-INTACT (NEGATIVE); PH,URINE 7.5 (5.0-8.0); PROTEIN,URINE NEGATIVE (NEGATIVE)
[2023-07-29 19:03] LABS: AMORPHOUS SEDIMENT,URINE MANY; BACTERIA,URINE MODERATE; EPITHELIAL CELLS,URINE MODERATE; MUCUS,URINE FEW; WBC,URINE 40-50 (0-5)
== END 2023-07-29 19:55 | disposition home or self-care (01) ==
LOC: JP.ED 16:58
DX: M62.50 Muscle wasting and atrophy, not elsewhere classified, unspecified site (principal); N30.01 Acute cystitis with hematuria; I48.91 Unspecified atrial fibrillation; J45.909 Unspecified asthma, uncomplicated; E11.9 Type 2 diabetes mellitus without complications; E66.9 Obesity, unspecified; E11.52 Type 2 diabetes mellitus with diabetic peripheral angiopathy with gangrene; I96 Gangrene, not elsewhere classified; Z91.048 Other nonmedicinal substance allergy status; Z91.041 Radiographic dye allergy status; Z88.8 Allergy status to other drugs, medicaments and biological substances; Z86.19 Personal history of other infectious and parasitic diseases; Z86.16 Personal history of COVID-19; Z90.49 Acquired absence of other specified parts of digestive tract; Z68.37 Body mass index [BMI] 37.0-37.9, adult; Z79.01 Long term (current) use of anticoagulants
CPT/HCPCS: 0241U; 36415; 71045; 80053; 81001; 83605; 83735; 84484; 85025; 87086; 93005; 99285; A9270; 87088; 87186; 93010; 99284

== ENCOUNTER 2023-07-29 20:41 | Observation (INO) | payer MEDICAID ==
[2023-07-29] MEDS ORDERED: Melatonin 3 MG Tab PO PRN (21:39)
[2023-07-29] MEDS ORDERED: Ondansetron 4 MG/2 ML SDV IV PRN (21:39)
[2023-07-29] MEDS ORDERED: Ondansetron 4 MG Tab.DIS PO PRN (21:39)
[2023-07-29] MEDS ORDERED: Acetaminophen 325 MG Tab PO PRN (21:39)
[2023-07-29] MEDS ORDERED: 50% Dextrose in Water 50 ML Syringe IVPUSH PRN (23:06)
[2023-07-29] MEDS ORDERED: Glucagon,Human Recombinant 1 MG Vial IM PRN (23:06)
[2023-07-29] MEDS ORDERED: oxyCODONE 5 MG Tab PO PRN (23:34)
[2023-07-29] MEDS: NITROFURANTOIN MONOHYDRATE PO SCH (23:34)
[2023-07-29] MEDS: MACROCRYSTALLINE PO SCH (23:34)
[2023-07-30] MEDS: oxyCODONE 5 MG Tab PO SCH (00:11)
[2023-07-30 05:53] LABS: HEMATOCRIT 44.3 % (34.3-46.0); HEMOGLOBIN 13.7 g/dL (11.2-15.5); MEAN CORPUSCULAR HEMOGLOBIN 27.7 pg (31.6-35.5); MEAN CORPUSCULAR HGB CONC 30.9 g/dL (31.6-35.5); MEAN CORPUSCULAR VOLUME 89.5 fL (81.4-99.0); RED BLOOD CELL COUNT 4.95 M/uL (3.77-5.24); WHITE BLOOD CELL COUNT,WBC 5.8 K/uL (3.2-11.0)
[2023-07-30 06:04] LABS: ANION GAP 6.7 mmol/L (5.0-14.0); CALCIUM 9.6 mg/dL (8.5-10.1); CREATININE 0.6 mg/dL (0.6-1.0); EST CRCL DRUG DOSING (CG) 122.51 mL/min; POTASSIUM,K 4.4 mmol/L (3.6-5.2)
[2023-07-30] MEDS: Insulin Lispro 100 Unit/ML 3 ML KwikPen SUBCUT SCH (08:13)
[2023-07-30] MEDS: Lactobacillus Rhamnosus GG (Probiotic) Cap PO SCH (08:29)
[2023-07-30] MEDS: Apixaban 5 MG Tab PO SCH (08:29)
[2023-07-30] MEDS: Gabapentin 400 MG Cap PO SCH (08:29)
[2023-07-30] MEDS: Aspirin 81 MG Tab.EC PO SCH (08:29)
[2023-07-30] MEDS: Sotalol 80 MG Tab PO SCH (08:30)
[2023-07-30] MEDS: Insulin Glargine,Human Rec. Analog 100 Units/ML 3 ML Pen SUBCUT SCH (08:37)
[2023-07-30] MEDS: OLANZapine 5 MG Tab PO SCH (21:19)
[2023-07-30] MEDS: Escitalopram 10 MG Tab PO SCH (21:19)
[2023-07-30] MEDS: Cephalexin 250 MG Cap PO SCH (21:19)
[2023-07-31 11:22] VITALS: BP 101/53; PULSE 71
== END 2023-07-31 13:30 | disposition home or self-care (01) ==
LOC: JP.ED 20:41 → JP.MS 21:03
PROVIDERS: ADMIT Registered Nurse; ATTEND Internal Medicine
DX: N30.01 Acute cystitis with hematuria (principal); M72.6 Necrotizing fasciitis; R29.898 Other symptoms and signs involving the musculoskeletal system; R53.1 Weakness; E11.69 Type 2 diabetes mellitus with other specified complication; F41.8 Other specified anxiety disorders; E66.01 Morbid (severe) obesity due to excess calories; Z79.4 Long term (current) use of insulin; Z79.899 Other long term (current) drug therapy
CPT/HCPCS: 36415; 80048; 82947; 84484; 85027; 97110; 97161; 97165; 99285; A9270; J1815; 99222; 99232; 99238; G0378

== ENCOUNTER 2023-08-05 14:44 | Emergency (ER) | payer MEDICAID ==
[2023-08-05 15:21] VITALS: BP 113/64; PULSE 65
== END 2023-08-05 16:05 | disposition left against medical advice (07) ==
LOC: JP.ED 14:44
DX: Z53.21 Procedure and treatment not carried out due to patient leaving prior to being seen by health care provider (principal)

== ENCOUNTER 2023-12-17 11:43 | Emergency (ER) | payer MEDICAID ==
[2023-12-17 13:16] VITALS: BP 127/87; PULSE 78
[2023-12-17] MEDS: Acetaminophen/HYDROcodone 325-5 MG Tab PO ONE (13:16)
== END 2023-12-17 13:18 | disposition home or self-care (01) ==
LOC: JP.ED 11:43
DX: E11.52 Type 2 diabetes mellitus with diabetic peripheral angiopathy with gangrene (principal); I96 Gangrene, not elsewhere classified; I48.91 Unspecified atrial fibrillation; E66.9 Obesity, unspecified; Z86.16 Personal history of COVID-19; Z90.49 Acquired absence of other specified parts of digestive tract; Z79.82 Long term (current) use of aspirin; Z79.01 Long term (current) use of anticoagulants; Z79.4 Long term (current) use of insulin; Z79.899 Other long term (current) drug therapy; Z91.09 Other allergy status, other than to drugs and biological substances; Z88.0 Allergy status to penicillin; Z88.8 Allergy status to other drugs, medicaments and biological substances; Z91.041 Radiographic dye allergy status; Z68.36 Body mass index [BMI] 36.0-36.9, adult
CPT/HCPCS: 99283; A9270

== ENCOUNTER 2024-01-08 13:50 | Emergency (ER) | payer MEDICAID ==
[2024-01-08 14:07] VITALS: BP 99/66; PULSE 71
== END 2024-01-08 14:19 | disposition left against medical advice (07) ==
LOC: JP.ED 13:50
DX: Z53.21 Procedure and treatment not carried out due to patient leaving prior to being seen by health care provider (principal)

== ENCOUNTER 2024-01-08 17:21 | Emergency (ER) | payer MEDICAID ==
[2024-01-08 18:27] VITALS: BP 123/83; PULSE 85
[2024-01-08] MEDS: Albuterol/Ipratropium 3.0-0.5 MG/3 ML Neb Soln NEB ONE (19:19)
== END 2024-01-08 19:39 | disposition home or self-care (01) ==
LOC: JP.ED 17:21
DX: J20.8 Acute bronchitis due to other specified organisms (principal); R09.02 Hypoxemia; I48.91 Unspecified atrial fibrillation; J45.909 Unspecified asthma, uncomplicated; M19.90 Unspecified osteoarthritis, unspecified site; E11.9 Type 2 diabetes mellitus without complications; Z86.16 Personal history of COVID-19; Z79.01 Long term (current) use of anticoagulants; Z79.4 Long term (current) use of insulin; Z79.82 Long term (current) use of aspirin; Z79.899 Other long term (current) drug therapy; Z88.1 Allergy status to other antibiotic agents; Z91.048 Other nonmedicinal substance allergy status; Z88.8 Allergy status to other drugs, medicaments and biological substances
CPT/HCPCS: 94640; 99284; J7620

== ENCOUNTER 2024-01-11 17:18 | Emergency (ER) | payer MEDICAID ==
[2024-01-11 21:13] VITALS: BP 110/63; PULSE 86
== END 2024-01-11 19:07 | disposition home or self-care (01) ==
LOC: JP.ED 17:18
DX: H60.91 Unspecified otitis externa, right ear (principal); I48.91 Unspecified atrial fibrillation; E11.9 Type 2 diabetes mellitus without complications; E66.9 Obesity, unspecified; Z86.16 Personal history of COVID-19; Z90.49 Acquired absence of other specified parts of digestive tract; Z79.01 Long term (current) use of anticoagulants; Z79.82 Long term (current) use of aspirin; Z79.4 Long term (current) use of insulin; Z79.899 Other long term (current) drug therapy; Z88.0 Allergy status to penicillin; Z88.8 Allergy status to other drugs, medicaments and biological substances; Z91.09 Other allergy status, other than to drugs and biological substances; Z91.041 Radiographic dye allergy status; Z68.32 Body mass index [BMI] 32.0-32.9, adult
CPT/HCPCS: 99282

== ENCOUNTER 2024-01-13 19:20 | Emergency (ER) | payer MEDICAID ==
[2024-01-13 21:18] VITALS: BP 134/78; PULSE 71
== END 2024-01-13 21:10 | disposition home or self-care (01) ==
LOC: JP.ED 19:20
DX: J20.8 Acute bronchitis due to other specified organisms (principal); I48.91 Unspecified atrial fibrillation; E11.9 Type 2 diabetes mellitus without complications; J44.9 Chronic obstructive pulmonary disease, unspecified; E66.9 Obesity, unspecified; Z86.16 Personal history of COVID-19; Z79.899 Other long term (current) drug therapy; Z79.01 Long term (current) use of anticoagulants; Z79.82 Long term (current) use of aspirin; Z87.891 Personal history of nicotine dependence; Z91.048 Other nonmedicinal substance allergy status; Z88.0 Allergy status to penicillin; Z88.8 Allergy status to other drugs, medicaments and biological substances; Z91.018 Allergy to other foods; Z68.38 Body mass index [BMI] 38.0-38.9, adult
CPT/HCPCS: 71045; 71045-26; 99284

== ENCOUNTER 2024-01-27 16:14 | Emergency (ER) | payer MEDICAID ==
[2024-01-27 17:11] VITALS: BP 112/77; PULSE 70
== END 2024-01-27 16:52 | disposition home or self-care (01) ==
LOC: JP.ED 16:14
DX: M79.645 Pain in left finger(s) (principal); J45.909 Unspecified asthma, uncomplicated; M19.90 Unspecified osteoarthritis, unspecified site; E11.9 Type 2 diabetes mellitus without complications; E66.9 Obesity, unspecified; Z86.16 Personal history of COVID-19; Z90.49 Acquired absence of other specified parts of digestive tract; Z79.899 Other long term (current) drug therapy; Z79.82 Long term (current) use of aspirin; Z91.048 Other nonmedicinal substance allergy status; Z88.1 Allergy status to other antibiotic agents; Z88.8 Allergy status to other drugs, medicaments and biological substances
CPT/HCPCS: 99283

== ENCOUNTER 2024-02-15 16:44 | Emergency (ER) | payer MEDICAID | END 2024-02-15 18:03 | disposition left against medical advice (07) | LOC: JP.ED 16:44 | DX: Z53.21 Procedure and treatment not carried out due to patient leaving prior to being seen by health care provider (principal) ==

== ENCOUNTER 2024-04-07 12:44 | Emergency (ER) | payer MEDICAID ==
[2024-04-07] MEDS ORDERED: Sodium Chloride 0.9% 10 ML Syringe FLUSH PRN (14:19)
[2024-04-07 14:44] LABS: BASOPHILS PERCENT AUTO 0.1 % (0.1-1.3); EOSINOPHILS ABSOLUTE AUTO 0.06 K/uL (0.00-0.40); EOSINOPHILS PERCENT AUTO 0.8 % (0.0-5.4); HEMOGLOBIN 16.1 g/dL (11.2-15.5); IMMATURE GRAN PERCENT AUTO 0.3 % (0.0-0.7); LYMPHOCYTES ABSOLUTE AUTO 2.08 K/uL (0.8-3.3); LYMPHOCYTES PERCENT AUTO 28.8 % (11.4-47.7); MEAN CORPUSCULAR HEMOGLOBIN 30.8 pg (31.6-35.5); MEAN CORPUSCULAR HGB CONC 32.2 g/dL (31.6-35.5); MEAN CORPUSCULAR VOLUME 95.8 fL (81.4-99.0); MONOCYTES ABSOLUTE AUTO 0.57 K/uL (0.20-0.90); MONOCYTES PERCENT AUTO 7.9 % (3.3-12.6); NEUTROPHILS ABSOLUTE AUTO 4.47 K/uL (1.0-7.6); NEUTROPHILS PERCENT AUTO 62.1 % (40.0-78.1); PLATELET COUNT,PLT 195 K/uL (130-375); RED BLOOD CELL COUNT 5.22 M/uL (3.77-5.24); WHITE BLOOD CELL COUNT,WBC 7.2 K/uL (3.2-11.0)
[2024-04-07 14:54] LABS: BASOPHILS ABSOLUTE AUTO 0.01 K/uL (0.00-0.10); IMMATURE GRAN ABSOLUTE AUTO 0.02 K/uL (0.00-0.23)
[2024-04-07] MEDS: Lactated Ringers 1,000 ML IV ONE (15:03)
[2024-04-07] MEDS: Prochlorperazine 10 MG/2 ML SDV IVPUSH ONE (15:06)
[2024-04-07 15:07] LABS: A/G RATIO 0.8 (1.2-2.2); ALANINE AMINOTRANSFERASE,ALT 55 U/L (12-78); ALBUMIN 3.4 g/dL (3.4-5.0); ALKALINE PHOSPHATASE 160 U/L (46-116); ANION GAP 7.7 mmol/L (5.0-14.0); ASPARTATE AMNIOTRANSFERASE,AST 30 U/L (15-37); BILIRUBIN TOTAL 0.6 mg/dL (0.2-1.0); BLOOD UREA NITROGEN,BUN 9 mg/dL (7-18); CALCIUM 8.9 mg/dL (8.5-10.1); CARBON DIOXIDE,CO2 32 mmol/L (21-32); CHLORIDE,CL 101 mmol/L (100-108); CREATININE 0.6 mg/dL (0.6-1.0); EST CRCL DRUG DOSING (CG) 117.76 mL/min; ESTIMATED GFR 120 mL/min (>60); GLUCOSE RANDOM 169 mg/dL (74-106); POTASSIUM,K 3.9 mmol/L (3.6-5.2); PROTEIN TOTAL,TP 7.5 g/dL (6.4-8.2); SODIUM,NA 141 mmol/L (140-148)
[2024-04-07 16:03] VITALS: BP 117/70; PULSE 79
[2024-04-07 16:49] LABS: APPEARANCE,URINE CLOUDY (CLEAR); BILIRUBIN,URINE SMALL (NEGATIVE); COLOR,URINE YELLOW (YELLOW); GLUCOSE,URINE NEGATIVE (NEGATIVE); KETONES,URINE NEGATIVE (NEGATIVE); LEUKOCYTE ESTERASE,URINE SMALL (NEGATIVE); NITRITE,URINE NEGATIVE (NEGATIVE); OCCULT BLOOD,URINE NEGATIVE (NEGATIVE); PROTEIN,URINE 30 mg/dL (NEGATIVE); UROBILINOGEN,URINE 0.2 EU/dL (0.2-1.0)
[2024-04-07 17:01] LABS: AMORPHOUS SEDIMENT,URINE NOT SEEN; BACTERIA,URINE MANY; EPITHELIAL CELLS,URINE MODERATE; MUCUS,URINE FEW; RBC,URINE 0-5 (0-5); WBC,URINE 20-30 (0-5)
== END 2024-04-07 17:09 | disposition home or self-care (01) ==
LOC: JP.ED 12:44
DX: A08.4 Viral intestinal infection, unspecified (principal); B37.2 Candidiasis of skin and nail; E11.9 Type 2 diabetes mellitus without complications; E86.0 Dehydration; I48.91 Unspecified atrial fibrillation; E66.9 Obesity, unspecified; Z86.16 Personal history of COVID-19; Z90.49 Acquired absence of other specified parts of digestive tract; Z79.899 Other long term (current) drug therapy; Z79.01 Long term (current) use of anticoagulants; Z88.0 Allergy status to penicillin; Z91.041 Radiographic dye allergy status; Z91.09 Other allergy status, other than to drugs and biological substances; Z88.8 Allergy status to other drugs, medicaments and biological substances; Z68.38 Body mass index [BMI] 38.0-38.9, adult
CPT/HCPCS: 36415; 80053; 81001; 83690; 83735; 85025; 86140; 87086; 87088; 87186; 96361; 96374; 99285; J0780; J7120